=== PATIENT | male | born 1955 | race Caucasian/White ===

== ENCOUNTER 2021-08-09 10:26 | Emergency (ER) | payer MEDICARE, OTHER ==
[2021-08-09] MEDS ORDERED: ACETAMINOPHEN 500 MG TAB ONE (11:32)
--- NOTE | 2021-08-09 11:43 | RAD REPORT ---
EXAM DESCRIPTION: CT - Head Brain Wo Cont - 08/09/2021 11:25 am CLINICAL HISTORY: HEADACHE COMPARISON: No comparisons TECHNIQUE: All CT scans are performed using dose optimization technique as appropriate and may inclu de automated exposure control or mA/KV adjustment according to patient size. FINDINGS: Asymmetric white matter disease in the left cerebral hemisphere. Left subinsular hypoatten uation with surrounding hypoattenuation. This may represent petechial hemorrhage from a prior infarct . No definite acute intracranial hemorrhage. No mass effect or midline shift. Ex vacuo dilatation lef t lateral ventricle. The paranasal sinuses and mastoids are clear. The calvarium is intact. IMPRESSION: Left subinsular hypoattenuation most likely representing a chronic infarct with adjacent petechial hemorrhage. No priors are available for comparison. Consider further evaluation with MRI w ith and without contrast to better evaluate.
[2021-08-09] MEDS ORDERED: LORazepam 2 MG/ML VIAL ONE (12:08)
[2021-08-09 12:10] LABS: Absolute Lymphocytes (CBC) 1.6 K/uL (0.7-4.9); Hematocrit 41.1 % (39.6-49.0); Lymphocytes % 25.6 % (15.3-44.8); MPV 7.9 fL (7.6-11.3); RBC Red Blood Cell Count 4.38 M/uL (4.33-5.43)
[2021-08-09 12:13] LABS: Protime INR 1.14
[2021-08-09 12:24] LABS: Potassium 3.9 mmol/L (3.5-5.1)
[2021-08-09 12:33] LABS: SARS-COV-2 RT PCR NEGATIVE (NEGATIVE)
--- NOTE | 2021-08-09 13:04 | RAD REPORT ---
EXAM DESCRIPTION: MRI - Brain W/Wo Cont - 08/09/2021 12:48 pm CLINICAL HISTORY: Headache COMPARISON: head CT head CT August 09, 2021 TECHNIQUE: Axial, sagittal, and coronal magnetic images of the brain were obtained. 20 cc MultiHance administered intravenously FINDINGS: Mild to moderate signal within periventricular, deep and subcortical white matter probably ischemic changes secondary to small vessel disease 4 centimeter area of abnormal signal left subinsular region with low signal periphery. Atrophied left cerebral peduncle of the forrest with small area of increased signal probably old small i nfarct. The ventricles are normal in caliber. Diffusion-weighted/ ADC mapping sequences do not demonstrate evidence of an acute infarction. No abnormal enhancement within the brain is seen. An extra-axial fluid collection is not noted. Small amount signal left mastoid IMPRESSION: A 4 centimeter area of abnormal signal left subinsular region with low signal periphery. This is compatible with an old infarction with the low signal representing hemosiderin indicating a small old bleed in the periphery. In addition T1 weighted sequences demonstrate minimal increased si gnal in the periphery probably indicating small acute/subacute petechial bleed
--- NOTE | 2021-08-09 13:35 | ER ---
Nurse's Notes [facility] Name: George Molina Age: 66 yrs Sex: Male : 1955 Arrival Date: 08/09/2021 Time: 10:27 Bed 8 Private MD: Joe Sierra E Diagnosis: Other nontraumatic intracerebral hemorrhage Presentation: 08/09 10:39 Chief complaint: Pt having kerr with fls x 3 days. family worried about KERR due to hx of [facility] head bleed x 2 mo ago. Coronavirus screen: Vaccine status: Patient reports receiving the 2nd dose of the covid vaccine. Client denies travel out of the [place] in the last 14 days. Ebola Screen: Patient denies exposure to infectious person. Patient denies travel to an Ebola-affected area in the 21 days before illness onset. Initial Sepsis Screen: Does the patient meet any 2 criteria? No. Patient's initial sepsis screen is negative. Does the patient have a suspected source of infection? No. Patient's initial sepsis screen is negative. Risk Assessment: Do you want to hurt yourself or someone else? Patient reports no desire to harm self or others. Onset of symptoms was August 06, 2021. 10:39 Method Of Arrival: Wheelchair [facility] 10:39 Acuity: FRANCY 3 [facility] Triage Assessment: 10:42 Headache History: The patient has had previous headaches and this one is similar to [facility] previous episodes. General: Appears in no apparent distress. Behavior is calm, cooperative. Pain: Complains of pain in forehead Pain currently is 6 out of 10 on a pain scale. Quality of pain is described as throbbing, Pain began 2-3 days ago. Also complains of no other associated symptoms. Neuro: No deficits noted. Historical: - Allergies: 10:41 Ibuprofen; [facility] - PMHx: 10:41 Cerebrovascular accident; Hypertensive disorder; [facility] - Immunization history:: Client reports receiving the 2nd dose of the Covid vaccine, Client reports having NOT received the Covid vaccine. - Social history:: Smoking status: Patient/guardian denies using. Screenin:45 Abuse screen: Denies threats or abuse. Denies injuries from another. Nutritional bp screening: No deficits noted. Tuberculosis screening: No symptoms or risk factors identified. Fall Risk None identified. Assessment: 10:45 General: SEE TRIAGE NOTE. bp 11:38 Reassessment: PT RETURNED FROM CT. bp 13:03 Reassessment: No changes from previously documented assessment. Patient and/or family bp updated on plan of care and expected duration. Pain level reassessed. PT RETURNED FROM MRI. 14:15 Reassessment: REPORT TO VINI WALTON AT [facility]. TRANSPORT PENDING. bp 15:48 Reassessment: PT SKYLAR WITH EMS. bp Vital Signs: 10:39 BP 109 / 79; Pulse 83; Resp 18; Temp 97.8; Pulse Ox 99% ; Weight 80.74 kg; Height 5 ft. jh6 9 in. (175.26 cm); Pain 6/10; 11:37 BP 129 / 82; Pulse 72; Resp 18; Pulse Ox 99% ; bp 13:03 BP 128 / 87; Pulse 69; Resp 16; Pulse Ox 99% ; bp 14:15 BP 128 / 92; Pulse 62; Resp 15; Pulse Ox 100% ; bp 15:30 BP 141 / 87; Pulse 127; Resp 16; Pulse Ox 100% ; bp 10:39 Body Mass Index 26.29 (80.74 kg, 175.26 cm) [facility] ED Course: 10:27 Patient arrived in ED. am2 10:28 Joe Sierra MD is Private Physician. am2 10:41 Triage completed. jh6 10:43 Arm band placed on left wrist. jh6 10:44 Lorne Sheikh, ISABELLE is Primary Nurse. bp 10:45 Patient has correct armband on for positive identification. Bed in low position. Call bp light in reach. Side rails up X2. Adult w/ patient. 10:48 Sarthak Gibbs PA is PHCP. cp 10:48 Sarthak Stevens MD is Attending Physician. cp 11:24 CT Head Brain wo Cont In Process Unspecified. EDMS 11:39 Strep Sent. bp 11:39 COVID-19/FLU A+B (Document "Date of Onset" if Symptomatic) Sent. bp 12:00 Inserted saline lock: 22 gauge in left forearm, using aseptic technique. Blood bp collected. 12:48 MRI - Brain W/Wo Cont In Process Unspecified. EDMS 13:08 EKG done, by ED staff, reviewed by Sarthak LINDO. mb7 13:41 initiated transfer to [facility]. bd 14:16 No provider procedures requiring assistance completed. Patient transferred, IV remains bp in place. 14:59 pt accepted in transfer to [facility] by Dr Rollins, admin approval given by Aisha Benítez. Administered Medications: 11:24 Drug: Tylenol 1000 mg Route: PO; bp 12:12 Follow up: Response: No adverse reaction bp 12:00 Drug: Ativan (LORazepam) 0.5 mg Route: IVP; Site: right forearm; bp 14:16 Follow up: Response: Anxiety decreased bp 14:45 Drug: Zofran (Ondansetron) 4 mg Route: IVP; Site: left forearm; bp 15:12 Follow up: Response: No adverse reaction bp 14:45 Drug: Pepcid (famotidine) 20 mg Route: IVP; Site: left forearm; bp 15:12 Follow up: Response: No adverse reaction bp Outcome: 13:35 ER care complete, transfer ordered by . cp 15:50 Transferred by ground EMS to [facility], Transfer form completed. bp 15:50 Condition: stable 15:50 Instructed on the need for transfer. 15:51 Patient left the ED. bp Signatures: Dispatcher [employer] EDMS Gaby Hartman Corey, PA PA cp Moreno, Amanda am2 Lorne Sheikh, RN RN Naya Beard RN RN jh6 Ely Baker mb7
--- NOTE | 2021-08-09 13:35 | EDPHYS ---
Physician Documentation [facility] Name: George Molina Age: 66 yrs Sex: Male : 1955 Arrival Date: 08/09/2021 Time: 10:27 Bed 8 Private MD: Joe Sierra E ED Physician Sarthak Stevens HPI: 08/09 11:00 This 66 yrs old Male presents to ER via Wheelchair with complaints of Runny Nose, cp Headache, Blood Pressure Problem. 11:00 The patient complains of pain to the top of head and forehead. The patient describes cp the headache as aching. 11:00 Onset: The symptoms/episode began/occurred this morning. Severity of symptoms: in the cp emergency department the pain is unchanged, despite home interventions. Historical: - Allergies: 10:41 Ibuprofen; jh6 - PMHx: 10:41 Cerebrovascular accident; Hypertensive disorder; jh6 - Immunization history:: Client reports receiving the 2nd dose of the Covid vaccine, Client reports having NOT received the Covid vaccine. - Social history:: Smoking status: Patient/guardian denies using. ROS: 11:05 Constitutional: Negative for body aches, chills, fever, poor PO intake. cp 11:05 Eyes: Negative for injury, pain, redness, and discharge. cp 11:05 ENT: Positive for rhinorrhea, sore throat, Negative for drainage from ear(s), ear pain, difficulty swallowing, difficulty handling secretions. 11:05 Cardiovascular: Negative for chest pain, edema, palpitations. 11:05 Respiratory: Positive for cough, Negative for shortness of breath, wheezing. 11:05 Abdomen/GI: Negative for abdominal pain, nausea, vomiting, and diarrhea. 11:05 Neuro: Positive for headache, Negative for altered mental status, dizziness, syncope, weakness. Exam: 11:03 ECG was reviewed by the Attending Physician. cp 11:10 Constitutional: The patient appears in no acute distress, alert, awake, cp non-diaphoretic, non-toxic, well developed, well nourished. 11:10 Head/Face: Normocephalic, atraumatic. cp 11:10 Eyes: Periorbital structures: appear normal, Pupils: equal, round, and reactive to light and accomodation, Extraocular movements: intact throughout, Conjunctiva: normal, no exudate, no injection, Sclera: no appreciated abnormality, Lids and lashes: appear normal, bilaterally. 11:10 ENT: External ear(s): are unremarkable, Nose: is normal, Mouth: Lips: moist, Oral mucosa: moist, Posterior pharynx: Airway: no evidence of obstruction, patent. 11:10 Neck: ROM/movement: is normal, is supple, without pain, no range of motions limitations. 11:10 Chest/axilla: Inspection: normal, Palpation: is normal, no crepitus, no tenderness. 11:10 Cardiovascular: Rate: normal, Rhythm: regular. 11:10 Respiratory: the patient does not display signs of respiratory distress, Respirations: normal, no use of accessory muscles, no retractions, labored breathing, is not present, intercostal retractions, are absent, Breath sounds: are clear throughout, no decreased breath sounds, no stridor, no wheezing. 11:10 Abdomen/GI: Inspection: abdomen appears normal, Bowel sounds: active, all quadrants, Palpation: abdomen is soft and non-tender, in all quadrants. 11:10 Back: pain, is absent, ROM is normal. 11:10 Neuro: Orientation: no acute changes, per family, Mentation: no acute changes, per family, Motor: no acute changes, right arm partially contracted from previous stroke, Sensation: no acute changes. Vital Signs: 10:39 BP 109 / 79; Pulse 83; Resp 18; Temp 97.8; Pulse Ox 99% ; Weight 80.74 kg; Height 5 ft. jh6 9 in. (175.26 cm); Pain 6/10; 11:37 BP 129 / 82; Pulse 72; Resp 18; Pulse Ox 99% ; bp 13:03 BP 128 / 87; Pulse 69; Resp 16; Pulse Ox 99% ; bp 14:15 BP 128 / 92; Pulse 62; Resp 15; Pulse Ox 100% ; bp 15:30 BP 141 / 87; Pulse 127; Resp 16; Pulse Ox 100% ; bp 10:39 Body Mass Index 26.29 (80.74 kg, 175.26 cm) jh6 MDM: 10:48 Patient medically screened. cp 08/09 11:04 Order name: COVID-19/FLU A+B (Document "Date of Onset" if Symptomatic) cp 08/09 11:04 Order name: Strep cp 08/09 11:04 Order name: COVID-19/FLU A+B; Complete Time: 13:05 EDTX 08/09 11:04 Order name: Group A Streptococcus Rapid Sc; Complete Time: 13:05 EDTX 08/09 11:48 Order name: Basic Metabolic Panel; Complete Time: 13:05 08/09 13:05 Interpretation: Normal except: CRE 1.69; GFR 41. 08/09 11:48 Order name: CBC with Diff; Complete Time: 13:05 08/09 13:06 Interpretation: Normal except: MCV 93.7; PLT 146; EOSINOPHIL % 4.5. 08/09 11:04 Order name: CT Head Brain wo Cont; Complete Time: 11:44 08/09 11:46 Order name: MRI - Brain W/Wo Cont; Complete Time: 13:05 08/09 11:48 Order name: PT-INR; Complete Time: 13:05 08/09 12:20 Order name: Throat Culture EDTX 08/09 12:35 Order name: CREATININE WHOLE BLOOD; Complete Time: 13:05 EDTX 08/09 11:48 Order name: EKG; Complete Time: 11:49 08/09 11:48 Order name: Cardiac monitoring; Complete Time: 12:11 08/09 11:48 Order name: EKG - Nurse/Tech; Complete Time: 13:03 08/09 11:48 Order name: IV Saline Lock; Complete Time: 12:12 08/09 11:48 Order name: Labs collected and sent; Complete Time: 12:12 08/09 11:48 Order name: O2 Per Protocol; Complete Time: 12:12 08/09 11:48 Order name: O2 Sat Monitoring; Complete Time: 12:12 EC:03 Rate is 73 beats/min. Rhythm is regular. NH interval is normal at 200 msec. QRS cp interval is prolonged at 102 msec. QT interval is normal. T waves are Inverted in leads III, aVR. Interpreted by me. Reviewed by me. Administered Medications: 11:24 Drug: Tylenol 1000 mg Route: PO; bp 12:12 Follow up: Response: No adverse reaction bp 12:00 Drug: Ativan (LORazepam) 0.5 mg Route: IVP; Site: right forearm; bp 14:16 Follow up: Response: Anxiety decreased bp 14:45 Drug: Zofran (Ondansetron) 4 mg Route: IVP; Site: left forearm; bp 15:12 Follow up: Response: No adverse reaction bp 14:45 Drug: Pepcid (famotidine) 20 mg Route: IVP; Site: left forearm; bp 15:12 Follow up: Response: No adverse reaction bp Disposition Summary: 08/09/21 13:35 Transfer Ordered Transfer Location: [facility] Reason: Higher level of care cp Condition: Stable cp Problem: new cp Symptoms: have improved cp Accepting Physician: DR Rollins(08/09/21 15:51) bp Diagnosis - Other nontraumatic intracerebral hemorrhage cp Forms: - Medication Reconciliation Form cp - SBAR form cp Addendum: 08/12/2021 09:19 Co-signature as Attending Physician, Sarthak Stevens MD I agree with the assessment and c schulz plan of care. Signatures: Dispatcher [employer] EDSarthak Cano MD MD cha Page, Corey, PA PA cp Lorne Sheikh, RN RN bp Naya Ferrara RN RN jh6 Corrections: (The following items were deleted from the chart) 08/09 13:54 13:35 Doctor cp cp 15:51 13:54 DR Rollins cp bp
[2021-08-09] MEDS ORDERED: ONDANSETRON 4 MG/2 ML VIAL ONE (14:46)
[2021-08-09] MEDS ORDERED: FAMOTIDINE 20 MG/2 ML VIAL IV ONE (14:47)
[2021-08-09 15:56] VITALS: TEMP 97.8
[2021-08-09 16:00] VITALS: O2SAT 100
[2021-08-09 16:01] VITALS: BP 141/87
--- NOTE | 2021-08-10 09:13 | EKG ---
Test Date: 2021-08-09 Test Time: 10:55:22 [employer] Worker: BENJAMIN MEASUREMENT RESULTS: Intervals: Rate: 73 VT: 200 QRSD: 102 QT: 394 QTc: 434 [place]: P: 34 VT: 200 QRS: 15 T: 20 INTERPRETIVE STATEMENTS: Normal sinus rhythm Normal ECG Compared to ECG 02/02/2016 14:05:58 No significant changes Electronically Signed On 08-10-21 09:09:25 [employer] by Kentrell Luna
== END 2021-08-09 15:51 | disposition short-term general hospital (02) ==
LOC: ER 10:26
DX: I61.8 Other nontraumatic intracerebral hemorrhage (principal); I10 Essential (primary) hypertension; Z86.73 Personal history of transient ischemic attack (TIA), and cerebral infarction without residual deficits; Z88.6 Allergy status to analgesic agent; Z20.822 Contact with and (suspected) exposure to COVID-19
CPT/HCPCS: 93005; 87070; 85025; 80048; 36415; 85610; 82565; 87081; 0240U; 70450; 70553; 99285; A9577; J2405

== ENCOUNTER 2021-12-22 15:12 | Observation (INO) | payer MEDICARE ==
--- NOTE | 2021-12-22 16:26 | RAD REPORT ---
EXAM DESCRIPTION: RAD - Chest Single View - 12/22/2021 4:04 pm CLINICAL HISTORY: CHEST PAIN COMPARISON: None TECHNIQUE: AP portable chest image was obtained 12/22/2021 4:04 pm . FINDINGS: Lungs are clear. Heart and vasculature are normal. No measurable pleural effusion and no p neumothorax. No acute bony abnormality seen. No acute aortic findings suspected. IMPRESSION: No acute cardiopulmonary process.
[2021-12-22 16:30] LABS: Absolute Lymphocytes (CBC) 0.9 K/uL (0.7-4.9); Hematocrit 44.2 % (39.6-49.0); Lymphocytes % 28.1 % (15.3-44.8); MCV 92.9 fL (80-100); RBC Red Blood Cell Count 4.75 M/uL (4.33-5.43)
[2021-12-22 16:55] LABS: Albumin 4.2 g/dL (3.4-5.0); Bilirubin Direct 0.2 mg/dL (0-0.2); Bilirubin Total 0.8 mg/dL (0.2-1.0); Protein, Total 8.3 g/dL (6.4-8.2)
[2021-12-22] MEDS ORDERED: ASPIRIN EC 81 MG TAB PO ONE (16:55)
[2021-12-22] MEDS ORDERED: CEFTRIAXONE 1000 MG/VIAL ONE (16:56)
[2021-12-22] MEDS ORDERED: AZITHROMYCIN 500 MG INJ IVPB ONE (16:56)
[2021-12-22 16:57] LABS: Magnesium 2.1 mg/dL (1.8-2.4); Potassium 4.6 mmol/L (3.5-5.1)
[2021-12-22] MEDS ORDERED: NA CHLORIDE 0.9% 250 ML ONE (16:57)
[2021-12-22] MEDS ORDERED: NA CHLORIDE 0.9% 1,000 ML ONE (16:57)
[2021-12-22 18:04] LABS: Protime INR 1.1
[2021-12-22] MEDS ORDERED: METOPROLOL TAR 50 MG TAB ONE (18:38)
--- NOTE | 2021-12-22 18:52 | ER ---
Nurse's Notes [facility] Name: George Molina Age: 66 yrs Sex: Male : 1955 Arrival Date: 12/22/2021 Time: 15:17 Bed 3 Private MD: Joe Sierra E Diagnosis: Chest pain, unspecified;Chest pain on breathing;Fever, unspecified;Coronavirus infection, unspecified;SARS-associated coronavirus as the cause of diseases classified elsewhere;Unspecified kidney failure-ACUTE ON CHRONIC Presentation: 12/22 16:01 Chief complaint: Patient states: fever, chest pain, ear pain since last night. iw Coronavirus screen: Client presents with at least one sign or symptom that may indicate coronavirus-19. Ebola Screen: Patient negative for fever greater than or equal to 101.5 degrees Fahrenheit, and additional compatible Ebola Virus Disease symptoms Patient denies exposure to infectious person. Patient denies travel to an Ebola-affected area in the 21 days before illness onset. No symptoms or risks identified at this time. Initial Sepsis Screen: Does the patient meet any 2 criteria? No. Patient's initial sepsis screen is negative. Does the patient have a suspected source of infection? No. Patient's initial sepsis screen is negative. Risk Assessment: Do you want to hurt yourself or someone else? Patient reports no desire to harm self or others. Onset of symptoms was December 21, 2021. 16:01 Method Of Arrival: Wheelchair iw 16:01 Acuity: FRANCY 3 iw Historical: - Allergies: 16:02 Ibuprofen; iw - Home Meds: 18:39 hydralazine 25 mg Oral tab 1 tab 4 times per day [Active]; labetalol 200 mg Oral tab 1 ha1 tab 4 [Active]; atorvastatin 20 mg oral tab 1 tab once daily [Active]; - PMHx: 16:02 Cerebrovascular accident; Hypertensive disorder; iw - Immunization history:: Adult Immunizations up to date, Client reports receiving the 2nd dose of the Covid vaccine. - Social history:: Smoking status: Patient denies any tobacco usage or history of. Patient/guardian denies using alcohol. - Family history:: not pertinent. Screenin:27 Abuse screen: Denies threats or abuse. Denies injuries from another. Nutritional ld1 screening: No deficits noted. Tuberculosis screening: No symptoms or risk factors identified. Fall Risk None identified. Assessment: 16:26 General: Appears in no apparent distress. comfortable, Behavior is calm, cooperative, ld1 appropriate for age. Pain: Complains of pain in chest Pain does not radiate. Pain currently is 0 out of 10 on a pain scale. at worst was 8 out of 10 on a pain scale. Quality of pain is described as pressure, throbbing, Pain began 2-3 days ago. Neuro: Level of Consciousness is awake, alert, obeys commands, Oriented to person, place, time, situation. Cardiovascular: Capillary refill < 3 seconds Patient's skin is warm and dry. Rhythm is sinus rhythm. Respiratory: Airway is patent Respiratory effort is even, unlabored. GI: Abdomen is round non-distended. : No signs and/or symptoms were reported regarding the genitourinary system. EENT: No signs and/or symptoms were reported regarding the EENT system. Derm: No signs and/or symptoms reported regarding the dermatologic system. Musculoskeletal: No signs and/or symptoms reported regarding the musculoskeletal system. Vital Signs: 16:26 BP 150 / 77; Pulse 86; Resp 18; Pulse Ox 100% on R/A; ld1 16:40 BP 154 / 85; Pulse 80; Resp 18; Pulse Ox 100% on R/A; ld1 18:10 BP 151 / 76; Pulse 88; Resp 18; Pulse Ox 99% on R/A; ld1 18:30 BP 136 / 89; Pulse 95; Resp 19; Pulse Ox 98% on R/A; ha1 18:49 Weight 70.31 kg; ld1 ED Course: 15:17 Patient arrived in ED. am2 15:17 Joe Sierra MD is Private Physician. am2 15:29 Sarthak Stevens MD is Attending Physician. jm 16:02 Triage completed. iw 16:06 XRAY Chest (1 view) In Process Unspecified. EDMS 16:09 Beverly Gonzales, ISABELLE is Primary Nurse. ld1 16:26 Lactate Sent. ld1 16:27 No provider procedures requiring assistance completed. Inserted saline lock: 20 gauge ld1 in left antecubital area, using aseptic technique. Blood collected. Patient maintains SpO2 saturation greater than 95% on room air. 16:27 Patient has correct armband on for positive identification. Placed in gown. Bed in low ld1 position. Call light in reach. Side rails up X2. jig bore operator on. Pulse ox on. NIBP on. Door closed. Noise minimized. Warm blanket given. 17:07 Flu Sent. ld1 17:07 SARS-COV-2 RT PCR (Document "Date of Onset" if Symptomatic) Sent. ld1 17:27 Inserted saline lock: 20 gauge in left forearm, using aseptic technique. Blood jd3 collected. 18:00 Second set of blood cultures drawn by ky. ha1 18:10 Urine Culture Sent. ld1 18:25 SARS-COV-2 RT PCR (Document "Date of Onset" if Symptomatic) Sent. oj 18:50 Prosper Linares is Hospitalizing Provider. jm Administered Medications: 17:54 Drug: Rocephin (cefTRIAXone) 1 grams Route: IV; Rate: per protocol; Site: left ld1 antecubital; 17:54 Drug: Aspirin Chewable Tablet 162 mg Route: PO; ld1 18:24 Follow up: Response: No adverse reaction ha1 18:09 Drug: Zithromax (azithromycin) 500 mg Route: IVPB; Infused Over: 1 hrs; Site: left ld1 antecubital; 18:09 Drug: NS 0.9% 1000 ml Route: IV; Rate: 1 bolus; Site: left antecubital; ld1 18:35 Drug: Lopressor (metoprolol TARTRATE) 50 mg Route: PO; ha1 19:09 Drug: Lovenox (enoxaparin) 1 mg/kg Route: Sub-Q; Site: abdomen; ld1 19:09 Drug: Pepcid (famotidine) 40 mg Route: PO; ld1 Medication: 16:27 VIS not applicable for this client. ld1 Outcome: 18:51 Decision to Hospitalize by Provider. jm 21:41 Patient left the ED. as6 Signatures: Dispatcher [employer] EDMS Sarthak Stevens MD MD cha Williams, Irene, RN Ekaterina Pitts Jonathon, RN RN jd3 Beverly Gonzales RN RN ld1 Kaiden Guerrero RN RN as6 Roxana Roberson RN RN ha1 Jackie Sheldon tato
--- NOTE | 2021-12-22 18:52 | EDPHYS ---
Physician Documentation [facility] [place] Name: George Molina Age: 66 yrs Sex: Male : 1955 Arrival Date: 12/22/2021 Time: 15:17 Bed 3 Private MD: Joe Sierra E ED Physician Sarthak Stevens HPI: 12/22 18:37 This 66 yrs old Male presents to ER via Wheelchair with complaints of Chest jm Pain. 18:37 The patient or guardian reports chest pain that is located primarily in the substernal jm area. Onset: 1 day(s) ago. The pain radiates to the left arm, Associated signs and symptoms: Pertinent positives: cough, lightheadedness, shortness of breath. The chest pain is described as a pressure. Duration: The patient or guardian reports multiple episodes, with no pattern. Modifying factors: The symptoms are alleviated by nothing. the symptoms are aggravated by nothing. Severity of pain: At its worst the pain was mild in the emergency department the pain is unchanged. The patient has experienced similar episodes in the past, several times. Historical: - Allergies: 16:02 Ibuprofen; iw - Home Meds: 18:39 hydralazine 25 mg Oral tab 1 tab 4 times per day [Active]; labetalol 200 mg Oral tab 1 ha1 tab 4 [Active]; atorvastatin 20 mg oral tab 1 tab once daily [Active]; - PMHx: 16:02 Cerebrovascular accident; Hypertensive disorder; iw - Immunization history:: Adult Immunizations up to date, Client reports receiving the 2nd dose of the Covid vaccine. - Social history:: Smoking status: Patient denies any tobacco usage or history of. Patient/guardian denies using alcohol. - Family history:: not pertinent. ROS: 18:37 Constitutional: Negative for fever, chills, and weight loss, Eyes: Negative for injury, jm pain, redness, and discharge, ENT: Negative for injury, pain, and discharge, Neck: Negative for injury, pain, and swelling, Abdomen/GI: Negative for abdominal pain, nausea, vomiting, diarrhea, and constipation, Back: Negative for injury and pain, : Negative for injury, bleeding, discharge, and swelling, MS/Extremity: Negative for injury and deformity, Skin: Negative for injury, rash, and discoloration, Neuro: Negative for headache, weakness, numbness, tingling, and seizure, Psych: Negative for depression, anxiety, suicide ideation, homicidal ideation, and hallucinations, Allergy/Immunology: Negative for hives, rash, and allergies, Endocrine: Negative for neck swelling, polydipsia, polyuria, polyphagia, and marked weight changes, Hematologic/Lymphatic: Negative for swollen nodes, abnormal bleeding, and unusual bruising. 18:37 Cardiovascular: Positive for chest pain, of the chest. 18:37 Respiratory: Positive for cough, with no reported sputum. Exam: 18:37 Constitutional: This is a well developed, well nourished patient who is awake, alert, jm and in no acute distress. Head/Face: Normocephalic, atraumatic. Eyes: Pupils equal round and reactive to light, extra-ocular motions intact. Lids and lashes normal. Conjunctiva and sclera are non-icteric and not injected. Cornea within normal limits. Periorbital areas with no swelling, redness, or edema. ENT: Nares patent. No nasal discharge, no septal abnormalities noted. Tympanic membranes are normal and external auditory canals are clear. Oropharynx with no redness, swelling, or masses, exudates, or evidence of obstruction, uvula midline. Mucous membranes moist. Neck: Trachea midline, no thyromegaly or masses palpated, and no cervical lymphadenopathy. Supple, full range of motion without nuchal rigidity, or vertebral point tenderness. No Meningismus. Chest/axilla: Normal chest wall appearance and motion. Nontender with no deformity. No lesions are appreciated. Cardiovascular: Regular rate and rhythm with a normal S1 and S2. No gallops, murmurs, or rubs. Normal PMI, no JVD. No pulse deficits. Respiratory: Lungs have equal breath sounds bilaterally, clear to auscultation and percussion. No rales, rhonchi or wheezes noted. No increased work of breathing, no retractions or nasal flaring. Abdomen/GI: Soft, non-tender, with normal bowel sounds. No distension or tympany. No guarding or rebound. No evidence of tenderness throughout. Back: No spinal tenderness. No costovertebral tenderness. Full range of motion. Skin: Warm, dry with normal turgor. Normal color with no rashes, no lesions, and no evidence of cellulitis. MS/ Extremity: Pulses equal, no cyanosis. Neurovascular intact. Full, normal range of motion. Neuro: Awake and alert, GCS 15, oriented to person, place, time, and situation. Cranial nerves II-XII grossly intact. Motor strength 5/5 in all extremities. Sensory grossly intact. Cerebellar exam normal. Normal gait. Psych: Awake, alert, with orientation to person, place and time. Behavior, mood, and affect are within normal limits. 18:37 ECG was reviewed by the Attending Physician. 18:37 Musculoskeletal/extremity: ROM: no acute changes, intact in all extremities, Circulation is intact in all extremities. Sensation intact. Compartment Syndrome exam of affected extremity: is normal. DVT Exam: No signs of deep vein thrombosis. no pain, no swelling, no tenderness, negative Homans' sign noted on exam, no appreciated bluish discoloration, no erythema, no increased warmth. Vital Signs: 16:26 BP 150 / 77; Pulse 86; Resp 18; Pulse Ox 100% on R/A; ld1 16:40 BP 154 / 85; Pulse 80; Resp 18; Pulse Ox 100% on R/A; ld1 18:10 BP 151 / 76; Pulse 88; Resp 18; Pulse Ox 99% on R/A; ld1 18:30 BP 136 / 89; Pulse 95; Resp 19; Pulse Ox 98% on R/A; ha1 18:49 Weight 70.31 kg; ld1 MDM: 15:29 Patient medically screened. jm 18:40 Differential diagnosis: abnormal EKG, acute myocardial infarction, acute pericarditis, jm congestive heart failure gastroesophageal reflux disease (GERD), hiatal hernia, pancreatitis, pericarditis, pleurisy, pneumonia, pulmonary embolus, stable angina, thoracic aortic disection, unstable angina. HEART Score: History: Slightly Suspicious (0), ECG: Normal (0), Age: > 45 and < 65 years (1), Risk Factors: > or = 3 Risk factors for atherosclerotic disease (2), [Hypercholesterolemia] [Hypertension] [+ Family HX] Troponin: < or = 1 x Normal Limit (0). The patient was given aspirin in the Emergency Department. The patient's deep vein thrombosis risk score was calculated as follows: Total Score: 0. This patient was found to be at low risk for a deep vein thrombosis by using the Well's assessment criteria. The patient's pulmonary embolism risk score was calculated as follows: Total Score: 0-2 points. This patient was found to be at low risk for a pulmonary embolism by using the Well's assessment criteria. RAIMUNDO Risk Score: 1 - Three or more CAD risk factors, 1- Known CAD, 1 - ASA use in past 7 days, TOTAL SCORE = 3. Data reviewed: vital signs, nurses notes, lab test result(s), EKG, radiologic studies, plain films. Data interpreted: playground monitor: rate is 95 beats/min, rhythm is regular, Pulse oximetry: on room air is 98 %. Test interpretation: by ED physician or midlevel provider: ECG, plain radiologic studies. Counseling: I had a detailed discussion with the patient and/or guardian regarding: the historical points, exam findings, and any diagnostic results supporting the discharge/admit diagnosis, lab results, radiology results, the need for further work-up and treatment in the hospital. 12/22 15:46 Order name: Basic Metabolic Panel; Complete Time: 17:43 [facility] 12/22 15:46 Order name: CBC with Diff; Complete Time: 16:49 [facility] 12/22 15:46 Order name: LFT's; Complete Time: 17:43 12/22 15:46 Order name: Magnesium; Complete Time: 17:43 12/22 15:46 Order name: NT PRO-BNP; Complete Time: 17:43 jm 12/22 15:46 Order name: PT-INR; Complete Time: 18:24 12/22 15:46 Order name: Troponin HS; Complete Time: 17:43 12/22 15:46 Order name: XRAY Chest (1 view); Complete Time: 16:49 12/22 15:46 Order name: Blood Culture Adult (2) 12/22 15:46 Order name: Lactate; Complete Time: 16:49 [facility] 12/22 15:46 Order name: Urine Culture 12/22 15:46 Order name: SARS-COV-2 RT PCR (Document "Date of Onset" if Symptomatic); Complete Time: jm 19:01 12/22 15:46 Order name: Flu; Complete Time: 19:01 12/22 15:46 Order name: EKG; Complete Time: 15:47 12/22 15:46 Order name: Cardiac monitoring; Complete Time: 16:26 [facility] 12/22 15:46 Order name: EKG - Nurse/Tech; Complete Time: 16:26 [facility] 12/22 15:46 Order name: IV Saline Lock; Complete Time: 16: [facility] 12/22 15:46 Order name: Labs collected and sent; Complete Time: 19:05 [facility] 12/22 15:46 Order name: O2 Per Protocol; Complete Time: 16: [facility] 12/22 15:46 Order name: O2 Sat Monitoring; Complete Time: 16: [facility] 12/22 15:46 Order name: Urine Dipstick-Ancillary (obtain specimen); Complete Time: 18:10 [facility] EC:37 Rate is 82 beats/min. Rhythm is regular. QRS [place] is Normal. [place] interval is normal. QRS jm interval is normal. QT interval is normal. No Q waves. T waves are Normal. No ST changes noted. Clinical impression: NSR w/ Non-specific ST/T Changes and No evidence of ischemia. Interpreted by me. Reviewed by me. Administered Medications: 17:54 Drug: Rocephin (cefTRIAXone) 1 grams Route: IV; Rate: per protocol; Site: left ld1 antecubital; 17:54 Drug: Aspirin Chewable Tablet 162 mg Route: PO; ld1 18:24 Follow up: Response: No adverse reaction ha1 18:09 Drug: Zithromax (azithromycin) 500 mg Route: IVPB; Infused Over: 1 hrs; Site: left ld1 antecubital; 18:09 Drug: NS 0.9% 1000 ml Route: IV; Rate: 1 bolus; Site: left antecubital; ld1 18:35 Drug: Lopressor (metoprolol TARTRATE) 50 mg Route: PO; ha1 19:09 Drug: Lovenox (enoxaparin) 1 mg/kg Route: Sub-Q; Site: abdomen; ld1 19:09 Drug: Pepcid (famotidine) 40 mg Route: PO; ld1 Disposition Summary: 12/22/21 18:51 Hospitalization Ordered Hospitalization Status: Observation jm Provider: Prosper Linares cha Location: Telemetry/MedSurg (observation) jm Condition: Fair jm Problem: new jm Symptoms: have improved jm Bed/Room Type: Standard [facility] Room Assignment: 222(12/22/21 20:48) eb1 Diagnosis - Chest pain, unspecified jm - Chest pain on breathing mj - Fever, unspecified jm - Coronavirus infection, unspecified jm - SARS-associated coronavirus as the cause of diseases classified elsewhere jm - Unspecified kidney failure - ACUTE ON CHRONIC jm Forms: - Medication Reconciliation Form jm - SBAR form jm Signatures: Dispatcher [employer] EDMS Sarthak Stevens MD MD cha Williams, Irene RN Val Coelho RN RN eb1 Beverly Gonzales RN RN ld1 Roxana Roberson RN RN ha1 Corrections: (The following items were deleted from the chart) 19:05 18:45 Misc. Order ordered. [facility] 19:40 18:53 Chest For PE Angio+CT.RAD.BRZ ordered. [facility] EDMS 20:48 18:51 jm eb1
[2021-12-22] MEDS ORDERED: FAMOTIDINE 20 MG TAB ONE (19:13)
[2021-12-22] MEDS ORDERED: ENOXAPARIN 80 MG/0.8 ML SQ ONE (19:13)
--- NOTE | 2021-12-22 20:49 | P.HP ---
Certification for Inpatient Patient admitted to: Observation With expected LOS: <2 Midnights Patient will require the following post-hospital care: None Practitioner: I am a practitioner with admitting privileges, knowledge of patient current condition, hospital course, and medical plan of care. Services: Services provided to patient in accordance with Admission requirements found in Title 42 Section 412.3 of the Code of Federal Regulations Patient History Date of Service: 12/22/21 Reason for admission: Chest Pain, COVID+ History of Present Illness: Patient is a 66-year-old male with hypertension and history of CVA with left sided deficits who presented to the ED with complaints of fever, chest pain, and cough x 24 hours. He reports the chest pain is midsternal, feels like a stabbing pain, but does not radiate anywhere. Son reports he has been unsteady on his feet. Work-up in ED significant for creatinine 1.85, troponin WNL, EKG without ST changes, COVID-positive, chest x-ray negative. He was given Rocephin, azithromycin, 162 mg aspirin, 1 L fluid, Lopressor, Pepcid, and therapeutic Lovenox in the ED. Upon my assessment, patient reports his chest pain has subsided. He did not know he was COVID-positive. He has been vaccinatedx2. Patient denies any cardiac history or previous cardiac work-up. ED provider wishes admit patient for observation. Allergies No Known Allergies Allergy (Verified 04/19/16 09:57) Home medications list reviewed: Yes Home Medications: Finasteride [Proscar] 5 mg PO DAILY 04/13/16 Hydralazine [Apresoline] 25 mg PO QID 04/13/16 Labetalol HCl [Trandate] 200 mg PO TID 04/13/16 Tamsulosin [Flomax] 0.4 mg PO BID 04/13/16 - Past Medical/Surgical History Diabetic: No -: Hypertension -: CVA Past Surgical History: Patient denies surgical history Psychosocial/ Personal History: Patient has a son. - Family History Sister -: Stroke Mother -: Heart disease, Diabetes - Social History Smoking Status: Never smoker Alcohol use: No CD- Drugs: No Caffeine use: Yes Place of Residence: Home Review of Systems General: Sweats Respiratory: Shortness of Breath Cardiovascular: Chest Pain Neurological: Incoordination Physical Examination - Physical Exam General: Alert, In no apparent distress HEENT: Atraumatic, PERRLA, EOMI, Sclerae nonicteric Neck: Supple, 2+ carotid pulse no bruit, No LAD, Without JVD or thyroid abnormality Respiratory: Clear to auscultation bilaterally, Normal air movement Cardiovascular: Regular rate/rhythm, Normal S1 S2 Gastrointestinal: Normal bowel sounds, No tenderness Musculoskeletal: No tenderness Integumentary: No rashes Neurological: Sensation intact, Normal affect, Abnormal strength - Studies Laboratory Data (last 24 hrs) 12/22/21 17:38: PT 12.1, INR 1.10 12/22/21 16:13: WBC 3.3 L, Hgb 14.7, Hct 44.2, Plt Count 127 L 12/22/21 16:13: Sodium 140, Potassium 4.6, BUN 14, Creatinine 1.85 H, Glucose 82, Magnesium 2.1, Total Bilirubin 0.8, AST 26, ALT 30, Alkaline Phosphatase 31 L Microbiology Data (last 24 hrs): 12/22/21 17:02 Nasopharnyx Influenza Type A Antigen Screen - Final 12/22/21 17:02 Nasopharnyx Influenza Type B Antigen Screen - Final Assessment and Plan - Problems (Diagnosis) (1) Chest pain Current Visit: Yes Status: Acute Qualifiers: Chest pain type: unspecified Qualified Code(s): R07.9 - Chest pain, unspecified (2) COVID-19 Current Visit: Yes Status: Acute (3) GWENDOLYN (acute kidney injury) Current Visit: Yes Status: Acute (4) Hypertension Current Visit: Yes Status: Chronic Qualifiers: Hypertension type: primary hypertension Qualified Code(s): I10 - Essential (primary) hypertension - Plan -Initial troponin negative. Trend q6h -Cardiology consult -Gentle IV hydration for GWENDOLYN -Vitamin C, zinc, aspirin, atorvastatin daily -Physical therapy consult -Monitor on telemetry -TSH and lipid panel ordered -Monitor and replete electrolytes per protocol -Reconcile and continue home medications -Lovenox for VTE ppx -Full code Discharge Plan: Home Plan to discharge in: 24 Hours - Advance Directives Does patient have a Living Will: Yes Does patient have a Durable POA for Healthcare: Yes - Code Status/Comfort Care Code Status Assessed: Yes (Full) Critical Care: No Time Spent Managing Pts Care (In Minutes): 50
[2021-12-22 21:51] VITALS: O2SAT 98
[2021-12-22] MEDS ORDERED: ONDANSETRON 4 MG/2 ML VIAL IV PRN (21:52)
[2021-12-22] MEDS ORDERED: BENZONATATE 100 MG CAP PO PRN (21:52)
[2021-12-22] MEDS ORDERED: NA CHLORIDE 0.9% 1,000 ML IV SCH (21:52)
[2021-12-22] MEDS ORDERED: ACETAMINOPHEN 500 MG TAB PO PRN (21:52)
[2021-12-22 21:55] VITALS: BMI 26.1
[2021-12-23 06:39] LABS: Absolute Lymphocytes (CBC) 1.3 K/uL (0.7-4.9); Hematocrit 40.6 % (39.6-49.0); Lymphocytes % 34.9 % (15.3-44.8); MCV 93.4 fL (80-100); MPV 8.3 fL (7.6-11.3); RBC Red Blood Cell Count 4.35 M/uL (4.33-5.43)
[2021-12-23 06:40] LABS: Phosphorus 2.8 mg/dL (2.5-4.9); Thyroid Stimulating Hormone 0.654 uIU/mL (0.360-3.740); Troponin High Sensitivity 11.8 pg/mL (<58.9)
[2021-12-23 06:41] LABS: Magnesium 1.7 mg/dL (1.8-2.4)
[2021-12-23 08:45] VITALS: BP 151/88; TEMP 98.6
[2021-12-23] MEDS ORDERED: ASCORBIC ACID 500 MG TABLET PO SCH (09:00)
[2021-12-23] MEDS ORDERED: ZINC SULFATE 220 MG CAP PO SCH (09:00)
[2021-12-23] MEDS ORDERED: ENOXAPARIN 40 MG/0.4 ML SQ SCH (09:00)
[2021-12-23] MEDS ORDERED: ASPIRIN EC 81 MG TAB PO SCH (09:00)
--- NOTE | 2021-12-23 11:53 | P.DS ---
Admission Date: 12/22/21 Discharge Date: 12/23/21 Disposition: ROUTINE DISCHARGE Discharge Condition: FAIR Reason for Admission: Chest Pain, COVID+ Consultations: Cardiology-Dr. Luna. - Problems (1) GWENDOLYN (acute kidney injury) Status: Acute (2) COVID-19 Status: Acute (3) Chest pain Status: Acute Qualifiers: Chest pain type: unspecified Qualified Code(s): R07.9 - Chest pain, unspecified (4) Hypertension Status: Chronic Qualifiers: Hypertension type: primary hypertension Qualified Code(s): I10 - Essential (primary) hypertension Brief History of Present Illness: Patient is a 66-year-old male with hypertension and history of CVA with left sided deficits who presented to the ED with complaints of fever, chest pain, and cough x 24 hours. He reports the chest pain is midsternal, feels like a stabbing pain, but does not radiate anywhere. Son reports he has been unsteady on his feet. Work-up in ED significant for creatinine 1.85, troponin WNL, EKG without ST changes, COVID-positive, chest x-ray negative. He was given Rocephin, azithromycin, 162 mg aspirin, 1 L fluid, Lopressor, Pepcid, and therapeutic Lovenox in the ED. Upon assessment for admission, patient reported his chest pain has subsided. He did not know he was COVID-positive. He has been vaccinatedx2. Patient denied any cardiac history or previous cardiac work- up. Patient placed under observation for ACS rule out. Hospital Course: Troponin trended negative. Patient was asymptomatic, no chest pain or shortness of breath. Seen by cardiology-Dr. Luna. Chest pain considered to be atypical, related to the coughing. Serum creatinine trended down with IV hydration. ACS was ruled out. Patient is deemed stable for discharge. He will follow with Dr. Luna as an outpatient for arrangement for stress test. Vital Signs/Physical Exam: Temp Pulse Resp BP Pulse Ox 98.6 F 74 18 151/88 H 96 12/23/21 08:00 12/23/21 08:00 12/23/21 08:00 12/23/21 08:00 12/23/21 08:00 General: Alert, In no apparent distress, Oriented x3 HEENT: Mucous membr. moist/pink Neck: Supple, JVD not distended Respiratory: Clear to auscultation bilaterally, Normal air movement Cardiovascular: No edema, Regular rate/rhythm, Normal S1 S2 Gastrointestinal: Normal bowel sounds, Soft and benign, Non-distended, No tenderness Musculoskeletal: No swelling, No tenderness Integumentary: No rashes Neurological: Normal speech, Other (Residual left-sided weakness) Laboratory Data at Discharge: WBC 3.6 K/uL (4.3-10.9) L 12/23/21 05:33 Hgb 13.9 g/dL (13.6-17.9) 12/23/21 05:33 Hct 40.6 % (39.6-49.0) 12/23/21 05:33 Plt Count 101 K/uL (152-406) L D 12/23/21 05:33 PT 12.1 SECONDS (9.5-12.5) 12/22/21 17:38 INR 1.10 12/22/21 17:38 Sodium 139 mmol/L (136-145) 12/23/21 05:33 Potassium 4.0 mmol/L (3.5-5.1) 12/23/21 05:33 BUN 14 mg/dL (7-18) 12/23/21 05:33 Creatinine 1.65 mg/dL (0.55-1.3) H 12/23/21 05:33 Glucose 81 mg/dL (74-106) 12/23/21 05:33 Phosphorus 2.8 mg/dL (2.5-4.9) 12/23/21 05:33 Magnesium 1.7 mg/dL (1.8-2.4) L 12/23/21 05:33 Total Bilirubin 0.8 mg/dL (0.2-1.0) 12/22/21 16:13 AST 26 U/L (15-37) 12/22/21 16:13 ALT 30 U/L (12-78) 12/22/21 16:13 Alkaline Phosphatase 31 U/L (45-117) L 12/22/21 16:13 Triglycerides 103 mg/dL (<150) 12/23/21 05:33 Cholesterol 105 mg/dL (<200) 12/23/21 05:33 HDL Cholesterol 41 mg/dL (40-60) 12/23/21 05:33 Cholesterol/HDL Ratio 2.56 12/23/21 05:33 Home Medications: Finasteride [Proscar] 5 mg PO DAILY 04/13/16 Hydralazine [Apresoline*] 25 mg PO QID 04/13/16 Labetalol HCl [Trandate] 200 mg PO TID 04/13/16 Tamsulosin [Flomax*] 0.4 mg PO BID 04/13/16 Benzonatate [Tessalon Perle*] 100 mg PO TID PRN #30 cap 12/23/21 Zinc Sulfate [Zinc Sulfate*] 220 mg PO DAILY #30 cap 12/23/21 New Medications: Benzonatate [Tessalon Perle*] 100 mg PO TID PRN #30 cap PRN Reason: Cough Zinc Sulfate [Zinc Sulfate*] 220 mg PO DAILY #30 cap Diet: AHA Activity: Ad brianne Followup: Kentrell Luna MD [ACTIVE - CAN ADMIT] - 1 Week (For arrangement for Stress test) Joe Sierra MD [Primary Care Provider] - 1-2 Weeks (Call to schedule appointment)
--- NOTE | 2021-12-23 13:06 | EKG ---
Test Date: 2021-12-22 Test Time: 16:23:10 Inventory Representative: COLLIN MEASUREMENT RESULTS: Intervals: Rate: 82 IL: 194 QRSD: 94 QT: 384 QTc: 448 [place]: P: 61 IL: 194 QRS: 14 T: 57 INTERPRETIVE STATEMENTS: Normal sinus rhythm Normal ECG Compared to ECG 12/22/2021 16:20:55 Ventricular premature complex(es) no longer present ST (T wave) deviation no longer present Electronically Signed On 12-23-21 13:04:24 CDT by James Sylvester
--- NOTE | 2021-12-23 13:36 | ECHO ---
HEIGHT: 5 ft 8 in WEIGHT: 172 lb 0 oz DATE OF STUDY: 12/23/[address]: Negin Velasco 2-DIMENSIONAL: YES M.MODE: YES DOPPLER: YES COLOR FLOW: YES TDS: NO PORTABLE: YES DEFINITY: NO BUBBLE STUDY: NO DIAGNOSIS: CHEST PAIN CARDIAC HISTORY: CATHERIZATION: NO SURGERY: NO PROSTHETIC VALVE: NO PACEMAKER: NO MEASUREMENTS (cm) DIASTOLIC (NORMALS) SYSTOLIC (NORMALS) IVSd 1.0 (0.6-1.2) LA Diam 2.1 (1.9-4.0) LVEF 55-60% LVIDd 3.0 (3.5-5.7) LVIDs 1.7 (2.0-3.5) %FS 45% LVPWd 1.1 (0.6-1.2) Ao Diam 2.8 (2.0-3.7) 2 DIMENSIONAL ASSESSMENT: RIGHT ATRIUM: NORMAL LEFT ATRIUM: NORMAL RIGHT VENTRICLE: NORMAL LEFT VENTRICLE: NORMAL TRICUSPID VALVE: NORMAL MITRAL VALVE: PULMONIC VALVE: NORMAL AORTIC VALVE: NORMAL PERICARDIAL EFFUSION: NONE AORTIC ROOT: NORMAL LEFT VENTRICULAR WALL MOTION: NORMAL DOPPLER/COLOR FLOW: MILD MITRAL REGURGITATION. COMMENTS: NORMAL LEFT VENTRICULAR EJECTION FRACTION 55-60%. NORMAL WALL MOTION. MILD MITRAL REGURGITATION. TECHNOLOGIST: Montez HIDALGO
--- NOTE | 2021-12-25 10:56 | CON ---
Date of Consultation: 12/23/2021 The patient had come in with COVID positive and chest pain. He was admitted to Dr. Linares's service on 12/22/2021. I saw the patient on 12/23/2021. History Of Present Illness: Mr. Molina is 66 years old. Has had a history of hypertension and stroke in the past. He came in with substernal chest pain radiating to the left arm with some cough, light headedness, and shortness of breath. His pain was not exertional. He denies any nausea, vomiting, d iaphoresis, PND, orthopnea, pedal edema, palpitations, or syncope. It was hard to obtain a good hist ory from him because of his previous strokes. Allergies: HE IS ALLERGIC TO IBUPROFEN. Review of Systems: Negative. Social History: Negative. Family History: Negative. Medications: At home include hydralazine, labetalol, and atorvastatin. Physical Examination: Vital Signs: Stable, afebrile. HEENT: Negative. Neck: Supple with no bruit. Chest: Clear to auscultation and percussion. Cardiac: Revealed a regular rhythm and rate. No murmurs, gallops, or rubs. Abdomen: Benign. Extremities: Revealed no clubbing, cyanosis, or edema. Diagnostic Data: Showed a creatinine 1.65. His BNP and troponin were negative. He was COVID positi ve. His chest x-ray was negative. His EKG was negative. Echocardiogram that was done showed a norm al ejection fraction of 55% to 60% Impression And Plan: Atypical chest pain in a gentleman with stroke in the past and has a history of hypertension and dyslipidemia. Echocardiogram was normal. EKG is normal. Chest x-ray is normal. He has normal troponin, normal BNP. He has a creatinine of 1.85, which is stage 3, chronic renal dis ease. I am comfortable with him going home. I think it would be good to have him do an outpatient L exiscan at his convenience in the near future. BETSY/ASHLEY Voice ID: [id number] Report ID: [id number]
[2021-12-25 12:54] LABS: Urine Blood 2+ (Negative); Urine Glucose Negative (Negative); Urine Protein Negative (Negative); Urine Specific Gravity 1.025 (1.005-1.030)
== END 2021-12-23 12:23 | disposition home or self-care (01) ==
LOC: ER 15:12 → ERHOLD 20:43 → 2ND 21:08
PROVIDERS: ADMIT Internal Medicine; ATTEND Internal Medicine
DX: R07.89 Other chest pain (principal); N17.9 Acute kidney failure, unspecified; I12.9 Hypertensive chronic kidney disease with stage 1 through stage 4 chronic kidney disease, or unspecified chronic kidney disease; N18.30 Chronic kidney disease, stage 3 unspecified; U07.1 COVID-19; I69.90 Unspecified sequelae of unspecified cerebrovascular disease; R26.81 Unsteadiness on feet; E78.5 Hyperlipidemia, unspecified; Z79.899 Other long term (current) drug therapy; Z88.6 Allergy status to analgesic agent; Z82.3 Family history of stroke; Z83.3 Family history of diabetes mellitus
CPT/HCPCS: 93005; 93306; 87040 ×2; 87088; 85025 ×2; 87086; 80048 ×2; 36415; 83735 ×2; 84100; 85610; 80061; 80076; 83605; 84443; 81003; 84484 ×3; 83880; 87804 ×2; 71045; 96375; 96372; 96374; 99285; U0003; J0456; J1650; J7050; J7030 ×2; G0378 ×3

== ENCOUNTER → 2023-07-27 | Emergency (ER) | payer MEDICARE ==
[~2023-07-27] MED LIST: METOCLOPRAMIDE 10 MG/2mL INJ ONE; NA CHLORIDE 0.9% 1,000 ML ONE
--- NOTE | 2023-07-27 12:32 | RAD REPORT ---
EXAM DESCRIPTION: CT - Head Brain Wo Cont - 07/27/2023 12:24 pm CLINICAL HISTORY: Headache COMPARISON: 2021 TECHNIQUE: Computed axial tomography of the head was obtained. IV contrast was not requested. All CT scans are performed using dose optimization technique as appropriate and may include automated exposure control or mA/KV adjustment according to patient size. FINDINGS: An intracranial bleed is not seen The ventricles are normal in caliber No extra-axial fluid collection is noted. Old left cerebral infarction Mild to moderate low-density areas within periventricular, deep and subcortical white matter likely r epresent ischemic changes secondary to small vessel disease. Fluid within the sinuses/ mastoids is not seen. IMPRESSION: No acute intracranial abnormality is seen If patient's symptoms persist MRI of the brain would be recommended
[2023-07-27 13:00] LABS: Absolute Lymphocytes (CBC) 1.7 K/uL (0.7-4.9); Hematocrit 45.8 % (39.6-49.0); MCV 91.6 fL (80-100); MPV 7.4 fL (7.6-11.3); Platelets 169 thou/uL (152-406); RBC Red Blood Cell Count 5.01 M/uL (4.33-5.43)
[2023-07-27 13:15] LABS: Albumin 3.9 g/dL (3.4-5.0); Bilirubin Total 0.9 mg/dL (0.2-1.0); Protein, Total 8.3 g/dL (6.4-8.2)
[2023-07-27 13:16] LABS: Potassium 4.1 mEq/L (3.5-5.1)
--- NOTE | 2023-07-27 13:23 | ER ---
Nurse's Notes [facility] Name: George Molina Age: 68 yrs Sex: Male : 1955 Arrival Date: 07/27/2023 Time: 11:43 Bed 14 Private MD: Diagnosis: Headache Presentation: 07/27 12:04 Chief complaint: Patient states: sharp pain to back of head radiating down his neck , iw started at 1 am today , went away and came back. Coronavirus screen: At this time, the client does not indicate any symptoms associated with coronavirus-19. Ebola Screen: Patient negative for fever greater than or equal to 101.5 degrees Fahrenheit, and additional compatible Ebola Virus Disease symptoms Patient denies exposure to infectious person. Patient denies travel to an Ebola-affected area in the 21 days before illness onset. No symptoms or risks identified at this time. Initial Sepsis Screen: Does the patient meet any 2 criteria? No. Patient's initial sepsis screen is negative. Does the patient have a suspected source of infection? No. Patient's initial sepsis screen is negative. Risk Assessment: Do you want to hurt yourself or someone else? Patient reports no desire to harm self or others. Onset of symptoms was July 27, 2023. 12:04 Method Of Arrival: Wheelchair iw 12:04 Acuity: FRANCY 3 iw Triage Assessment: 12:15 Headache History: Denies prior headaches. General: Appears in no apparent distress. rs5 comfortable, Behavior is calm, appropriate for age. Pain: Also complains of. Pain: Complains of pain in back of head Pain radiates to right side of neck Pain currently is 5 out of 10 on a pain scale. Pain began 4 hours ago. Historical: - Allergies: 12:06 Ibuprofen; iw - PMHx: 12:06 Cerebrovascular accident; Hypertensive disorder; iw - Immunization history:: Adult Immunizations not up to date. - Social history:: Smoking status: Patient denies any tobacco usage or history of. Screenin:15 [facility] ED Fall Risk Assessment (Adult) History of falling in the last 3 months, rs5 including since admission No falls in past 3 months (0 pts) Confusion or Disorientation No (0 pts) Intoxicated or Sedated No (0 pts) Impaired Gait No (0 pts) Mobility Assist Device Used No (0 pt) Altered Elimination No (0 pt) Score/Fall Risk Level 0 - 2 = Low Risk Oriented to surroundings, Maintained a safe environment. Abuse screen: Denies threats or abuse. Nutritional screening: No deficits noted. Tuberculosis screening: No symptoms or risk factors identified. Assessment: 12:15 General: Appears in no apparent distress. uncomfortable, Behavior is calm, cooperative. rs5 Pain: Complains of pain in back of head Pain radiates to right side of neck Pain currently is 5 out of 10 on a pain scale. Quality of pain is described as aching, Is continuous. Neuro: Level of Consciousness is awake, alert, obeys commands, Oriented to person, place, time, situation. Cardiovascular: Patient's skin is warm and dry. Rhythm is regular. Respiratory: Airway is patent Respiratory effort is even, unlabored, Respiratory pattern is regular, symmetrical. GI: Abdomen is round non-distended, Abd is soft and non tender X 4 quads. : No signs and/or symptoms were reported regarding the genitourinary system. EENT: No signs and/or symptoms were reported regarding the EENT system. Derm: Skin is intact, Skin is pink, warm \T\ dry. Musculoskeletal: Circulation, motion, and sensation intact. Range of motion: intact in all extremities. 13:25 Reassessment: Patient and/or family updated on plan of care and expected duration. Pain rs5 level reassessed. Patient is alert, oriented x 3, equal unlabored respirations, skin warm/dry/pink. Patient denies pain at this time. Patient states feeling better. Patient states symptoms have improved. Vital Signs: 12:04 BP 166 / 109; Pulse 88; Resp 16; Temp 98.5; Pulse Ox 99% on R/A; Weight 77.11 kg; iw Height 5 ft. 9 in. ; 12:29 BP 146 / 78; Pulse 80; Resp 17; Temp 98.2(O); Pulse Ox 99% ; rs5 13:26 BP 135 / 74; Pulse 77; Resp 17; Pulse Ox 99% on R/A; rs5 12:04 Body Mass Index 25.10 (77.11 kg, 175.26 cm) iw ED Course: 11:45 Patient arrived in ED. rg4 11:56 Tani Clark MD is Attending Physician. ec2 12:06 Triage completed. iw 12:07 Arm band placed on. iw 12:15 Patient has correct armband on for positive identification. Call light in reach. Side rs5 rails up X2. 12:20 Inserted saline lock: 24 gauge in left hand, using aseptic technique. rs5 12:24 CT Head Brain wo Cont In Process Unspecified. EDMS 12:41 Moise Pepe, RN is Primary Nurse. rs5 13:25 No provider procedures requiring assistance completed. rs5 13:40 IV discontinued, intact, bleeding controlled, No redness/swelling at site. Pressure rs5 dressing applied. Administered Medications: 12:45 Drug: NS 0.9% IV 1000 ml IV at 1 bolus Per protocol; 1000 mL bolus Route: IV; Rate: 1 rs5 bolus; Site: left hand; 13:00 Follow up: Response: No adverse reaction rs5 12:45 Drug: metoCLOPramide IVP 10 mg IVP once; over 1 to 2 minutes Route: IVP; Site: left rs5 hand; 13:00 Follow up: Response: No adverse reaction rs5 Medication: 13:25 VIS not applicable for this client. rs5 Outcome: 13:23 Discharge ordered by . ec2 13:40 Discharged to home ambulatory, rs5 13:40 Condition: stable 13:40 Discharge instructions given to patient, family, Instructed on discharge instructions, follow up and referral plans. Demonstrated understanding of instructions, follow-up care, 13:42 Patient left the ED. rs5 Signatures: Dispatcher [employer] Lianet Lee RN RN iw Garcia, Rubi 4 Moise Pepe RN RN rs5 Tani Clark MD MD ec2
--- NOTE | 2023-07-27 13:23 | EDPHYS ---
Physician Documentation [facility] Name: George Molina Age: 68 yrs Sex: Male : 1955 Arrival Date: 07/27/2023 Time: 11:43 Bed 14 Private MD: ED Physician Tani Clark HPI: 07/27 12:13 This 68 yrs old Male presents to ER via Wheelchair with complaints of ec2 Headache, Neck Pain, <24hrs Old. 12:13 Patient arrives today due to concern for headache ongoing since earlier this morning. ec2 Patient reports no falls or injuries or trauma. 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 No vomiting, no diarrhea, no cough or cold symptoms, no fevers. Has not taken any medications for symptoms.. Historical: - Allergies: 12:06 Ibuprofen; iw - PMHx: 12:06 Cerebrovascular accident; Hypertensive disorder; iw - Immunization history:: Adult Immunizations not up to date. - Social history:: Smoking status: Patient denies any tobacco usage or history of. ROS: 12:13 Constitutional: as per hpi ec2 Exam: 12:13 Constitutional: GEN: NAD Head: atraumatic Eyes: EOMI Ears: External ears are ec2 normal. CV: regular rate LUNGS: no respiratory distress ABD: non-distended SKIN: no evidence of rashes MSK: no evidence of trauma NEURO: Paralysis of the right upper and lower extremity per baseline, left upper and lower extremity without deficit Vital Signs: 12:04 BP 166 / 109; Pulse 88; Resp 16; Temp 98.5; Pulse Ox 99% on R/A; Weight 77.11 kg; iw Height 5 ft. 9 in. ; 12:29 BP 146 / 78; Pulse 80; Resp 17; Temp 98.2(O); Pulse Ox 99% ; rs5 13:26 BP 135 / 74; Pulse 77; Resp 17; Pulse Ox 99% on R/A; rs5 12:04 Body Mass Index 25.10 (77.11 kg, 175.26 cm) iw MDM: 12:08 Patient medically screened. ec2 12:13 Data reviewed: vital signs. ED course: Patient arrives today for evaluation of ec2 headache. Examination remarkable for well-appearing nontoxic individual is otherwise in no acute distress. Will obtain lab work, CT imaging of the head. Currently considered process such as intracranial brain bleed, low suspicion for stroke. Will treat the patient symptoms reassess the patient.. 12:43 ED course: CT scan of the head shows no acute intracranial abnormality.. ec2 13:19 ED course: CBC and metabolic profile with no acute concerns, patient with known history ec2 of CKD per family. . 13:23 ED course: On reassessment patient with improved symptoms. Will discharge home. Return ec2 precautions given.. 07/27 12:13 Order name: CBC with Diff; Complete Time: 13:19 ec2 07/27 12:13 Order name: CMP; Complete Time: 13: ec2 07/27 12:13 Order name: CT Head Brain wo Cont; Complete Time: :43 ec2 Administered Medications: 12:45 Drug: NS 0.9% IV 1000 ml IV at 1 bolus Per protocol; 1000 mL bolus Route: IV; Rate: 1 rs5 bolus; Site: left hand; 13:00 Follow up: Response: No adverse reaction rs5 12:45 Drug: metoCLOPramide IVP 10 mg IVP once; over 1 to 2 minutes Route: IVP; Site: left rs5 hand; 13:00 Follow up: Response: No adverse reaction rs5 Disposition Summary: 07/27/23 13:23 Discharge Ordered Notes: Location: Home ec2 Condition: Stable ec2 Diagnosis - Headache ec2 Followup: ec2 - With: Private Physician - When: - Reason: Recheck today's complaints Discharge Instructions: - Discharge Summary Sheet ec2 - General Headache Without Cause ec2 Forms: - Medication Reconciliation Form ec2 - Thank You Letter ec2 - Antibiotic Education ec2 - Prescription Opioid Use ec2 - Patient Portal Instructions ec2 - Leadership Thank You Letter ec2 Signatures: Dispatcher [employer] Lianet Lee RN RN iw Moise Pepe RN RN rs5 Tani Clark MD MD ec2 Corrections: (The following items were deleted from the chart) 12:16 12:15 Patient medically screened. ec2 ec2
[2023-07-27 14:23] VITALS: BP 135/74; TEMP 98.2; O2SAT 99
== END ==
LOC: ER 11:43
DX: R51.9 Headache, unspecified (principal); M54.2 Cervicalgia; Z86.73 Personal history of transient ischemic attack (TIA), and cerebral infarction without residual deficits; I10 Essential (primary) hypertension; Z88.6 Allergy status to analgesic agent
CPT/HCPCS: 85025; 36415; 80053; 70450; 96374; 99284; J2765; J7030

== ENCOUNTER 2023-12-19 15:30 | Emergency (ER) | payer MEDICARE ==
[2023-12-19 16:43] LABS: Absolute Eosinophils 0.2 K/uL (0-0.5); Absolute Lymphocytes (CBC) 1.9 K/uL (0.7-4.9); Absolute Monocytes 0.4 K/uL (0.1-1.3); Absolute Neutrophil 4.1 K/uL (1.8-8.0); Basophils % 0.7 % (0-1.3); Eosinophils % 2.4 % (0-4.4); Hemoglobin 14.5 g/dL (13.6-17.9); Lymphocytes % 28.8 % (15.3-44.8); MPV 7.8 fL (7.6-11.3); Monocytes % 6.7 % (3.3-12.3); Neutrophils % 61.4 % (41.7-73.7); Platelets 178 thou/uL (152-406); RBC Red Blood Cell Count 4.54 M/uL (4.33-5.43); Red Cell Distribution Width 14.8 % (12.1-15.2)
[2023-12-19 17:01] LABS: Anion Gap 7.3 mEq/L (5.0-15.0); Potassium 3.3 mEq/L (3.5-5.1); Troponin High Sensitivity 11.9 pg/mL (<58.9)
[2023-12-19] MEDS ORDERED: MORPHINE 4 MG/ML SYR ONE (18:36)
--- NOTE | 2023-12-19 19:33 | RAD REPORT ---
EXAM DESCRIPTION: RAD - Chest Single View - 12/19/2023 4:18 pm CLINICAL HISTORY: CHEST PAIN Chest pain. COMPARISON: No comparisons FINDINGS: Portable technique limits examination quality. The lungs are grossly clear. The heart is normal in size. No displaced fractures. IMPRESSION: No acute intrathoracic process suspected.
--- NOTE | 2023-12-19 21:10 | EDPHYS ---
Physician Documentation [facility] Name: George Molina Age: 68 yrs Sex: Male : 1955 Arrival Date: 12/19/2023 Time: 15:30 Bed 16 Private MD: ED Physician Bhupinder Santana HPI: 12/18 19:29 This 68 yrs old Male presents to ER via Wheelchair with complaints of Chest Pain, Flank ms3 Pain, Neck Pain, >24Hrs Old. 19:29 68-year-old male with past medical history of hypertension and CVA [place] [facility] [place] for chest pain and right flank pain that began 1 hour prior to arrival. Patient states he also had shortness of breath associated with the symptoms. Patient describes the discomfort as 7/10. Patient denies any alleviating or inciting factors. Historical: - Allergies: 15:44 Ibuprofen; ap3 - PMHx: 15:44 Cerebrovascular accident; Hypertensive disorder; ap3 - Immunization history:: Client reports having NOT received the Covid vaccine. - Infectious Disease History:: Denies. - Social history:: Smoking status: Patient denies any tobacco usage or history of. ROS: 19:29 Constitutional: Negative for fever, and chills. Neck: Negative for injury, pain, and ms3 swelling, Respiratory: Negative for shortness of breath, cough, wheezing, and pleuritic chest pain, Abdomen/GI: Negative for abdominal pain, nausea, vomiting, diarrhea, and constipation, MS/Extremity: Negative for injury and deformity, Skin: Negative for injury, rash, and discoloration, 19:29 Cardiovascular: Positive for chest pain, Exam: 19:29 Constitutional: This is a well developed, well nourished patient who is awake, alert, ms3 and in no acute distress. Head/Face: Normocephalic, atraumatic. Chest/axilla: Normal chest wall appearance and motion. Nontender with no deformity. Cardiovascular: Regular rate and rhythm with a normal S1 and S2. No gallops, murmurs, or rubs. Normal PMI, no JVD. No pulse deficits. Respiratory: Lungs have equal breath sounds bilaterally, clear to auscultation and percussion. No rales, rhonchi or wheezes noted. No increased work of breathing, no retractions or nasal flaring. Abdomen/GI: Soft, non-tender, with normal bowel sounds. No distension or tympany. No guarding or rebound. No evidence of tenderness throughout. Skin: Warm, dry with normal turgor. Normal color with no rashes, no lesions, and no evidence of cellulitis. MS/ Extremity: Pulses equal, no cyanosis. Neurovascular intact. Full, normal range of motion. 19:31 ECG was reviewed by the Attending Physician. ms3 Vital Signs: 15:42 BP 165 / 99; Pulse 110; Resp 18; Pulse Ox 97% on R/A; Weight 79.38 kg; Height 5 ft. 10 ap3 in. ; Pain 7/10; 18:24 BP 160 / 71; Pulse 89; Resp 17; Pulse Ox 99% on R/A; rs5 20:06 BP 170 / 108; Pulse 70; Resp 16; Pulse Ox 98% on R/A; Pain 2/10; hb 15:42 Body Mass Index 25.11 (79.38 kg, 177.8 cm) ap3 15:42 Pain Scale: Adult ap3 20:06 Pain Scale: Adult hb MDM: 15:57 Patient medically screened. ms3 19:29 Differential diagnosis: abnormal EKG, acute myocardial infarction, pulmonary embolus. ms3 21:06 HEART Score: History: Slightly Suspicious (0), ECG: Normal (0), Age: > 45 and < 65 ms3 years (1), Risk Factors: 1 or 2 risk factors (1), Troponin: < or = 1 x Normal Limit (0), Total Score = 2. Data reviewed: vital signs, nurses notes, lab test result(s), EKG, radiologic studies, and as a result, I will discharge patient. Consideration of Admission/Observation Escalation of care including admission/observation considered. HEART score 2. I considered the following discharge prescriptions or medication management in the emergency department Medications were administered in the Emergency Department. See MAR. Independent interpretation of the following test(s) in the Emergency Department EKG: See my EKG interpretation above. Counseling: I had a detailed discussion with the patient and/or guardian regarding the historical points, exam findings, and any diagnostic results supporting the discharge/admit diagnosis, lab results, radiology results, the need for outpatient follow up, to return to the emergency department if symptoms worsen or persist or if there are any questions or concerns that arise at home. Special discussion: Based on the patient's history, exam, and Dx evaluation, there is no indication for emergent intervention or inpatient Tx. It is understood by the patient/guardian that if the Sx's persist or worsen they need to return immediately for re-evaluation. ED course: Discussed labs, EKG, chest x-ray with patient. Patient to follow-up with primary care physician in 2 to 3 days. Patient understands and agrees with plan. All questions were answered. Return precautions discussed include worsening symptoms, or any other concerns. 12/18 15:56 Order name: Basic Metabolic Panel; Complete Time: 21:06 ms3 12/18 15:56 Order name: CBC with Diff; Complete Time: 21: ms3 12/18 15:56 Order name: D-Dimer; Complete Time: 21:06 ms3 12/18 15:56 Order name: Troponin HS; Complete Time: 21:06 ms3 12/18 21:05 Order name: Troponin High Sensitivity EDMS 12/18 15:56 Order name: XRAY Chest (1 view); Complete Time: 21:06 ms3 12/18 15:56 Order name: Cardiac monitoring; Complete Time: 18:21 ms3 12/18 15:56 Order name: EKG - Nurse/Tech; Complete Time: 18:21 ms3 12/18 15:56 Order name: IV Saline Lock; Complete Time: 18:21 ms3 12/18 15:56 Order name: Labs collected and sent; Complete Time: 18:21 ms3 12/18 15:56 Order name: O2 Per Protocol; Complete Time: 18:21 ms3 12/18 15:56 Order name: O2 Sat Monitoring; Complete Time: 18:21 ms3 EC:31 Rate is 110 beats/min. Rhythm is regular. QRS [place] is Normal. [place] interval is normal. ms3 QRS interval is normal. Clinical impression: Sinus tachycardia. Interpreted by me. Reviewed by me. Administered Medications: 18:35 Drug: morphine IVP or IV 4 mg IVP once over 4 mins Route: IVP; Infused Over: 4 mins; rs5 Site: left antecubital; Disposition Summary: 12/19/23 20:29 Discharge Ordered Notes: Location: Home ms3 Condition: Stable ms3 Diagnosis - Chest pain, unspecified ms3 Followup: ms3 - With: James Sylvester MD - When: 2 - 3 days - Reason: Recheck today's complaints Discharge Instructions: - Discharge Summary Sheet ms3 - Nonspecific Chest Pain, Adult ms3 Forms: - Medication Reconciliation Form ms3 - Antibiotic Education ms3 - Prescription Opioid Use ms3 - Patient Portal Instructions ms3 - Leadership Thank You Letter ms3 Signatures: Dispatcher [employer] Ekaterina Maharaj RN RN ap3 Bhupinder Santana DO DO ms3 Moise Pepe RN RN rs5 Corrections: (The following items were deleted from the chart) 15:56 15:56 Chest Single View+RAD.RAD.BRZ ordered. EDMS EDMS
--- NOTE | 2023-12-19 21:10 | ER ---
Nurse's Notes [facility] Name: George Molina Age: 68 yrs Sex: Male : 1955 Arrival Date: 12/19/2023 Time: 15:30 Bed 16 Private MD: Diagnosis: Chest pain, unspecified Presentation: 12/18 15:42 Chief complaint: Patient states: he was ambulating when he started having right sided ap3 flank pain and chest pain that radiated to his back. patient states his pain is currently a 7/10 on the pain scale. patient denies nausea or vomiting at this time. Coronavirus screen: At this time, the client does not indicate any symptoms associated with coronavirus-19. Ebola Screen: No symptoms or risks identified at this time. Initial Sepsis Screen: Does the patient meet any 2 criteria? HR > 90 bpm. No. Patient's initial sepsis screen is negative. Does the patient have a suspected source of infection? No. Patient's initial sepsis screen is negative. Risk Assessment: Do you want to hurt yourself or someone else? Patient reports no desire to harm self or others. Onset of symptoms was December 19, 2023. 15:42 Method Of Arrival: Wheelchair ap3 15:42 Acuity: FRANCY 2 ap3 Triage Assessment: 15:44 General: Appears in no apparent distress. Behavior is calm, cooperative, appropriate ap3 for age. Pain: Complains of pain in right flank, chest Pain currently is 7 out of 10 on a pain scale. Neuro: Level of Consciousness is awake, alert, obeys commands, Oriented to person, place, time, situation. Cardiovascular: Reports chest pain, diaphoresis, Patient's skin is warm and dry. Respiratory: Airway is patent Respiratory effort is even, unlabored, Respiratory pattern is regular, symmetrical. Historical: - Allergies: 15:44 Ibuprofen; ap3 - PMHx: 15:44 Cerebrovascular accident; Hypertensive disorder; ap3 - Immunization history:: Client reports having NOT received the Covid vaccine. - Infectious Disease History:: Denies. - Social history:: Smoking status: Patient denies any tobacco usage or history of. Screenin:45 Abuse screen: Denies threats or abuse. Nutritional screening: No deficits noted. ap3 Tuberculosis screening: No symptoms or risk factors identified. 15:45 [facility] ED Fall Risk Assessment (Adult) History of falling in the last 3 months, rs5 including since admission No falls in past 3 months (0 pts) Confusion or Disorientation No (0 pts) Intoxicated or Sedated No (0 pts) Impaired Gait No (0 pts) Mobility Assist Device Used No (0 pt) Altered Elimination No (0 pt) Score/Fall Risk Level 0 - 2 = Low Risk Oriented to surroundings, Maintained a safe environment. Assessment: 15:35 General: Appears in no apparent distress. uncomfortable, Behavior is calm, cooperative. rs5 Pain: Complains of pain in chest and right flank Pain radiates to back Pain currently is 6 out of 10 on a pain scale. Quality of pain is described as aching, Pain began Is continuous. Neuro: Level of Consciousness is awake, alert, obeys commands, Oriented to person, place, time, situation. Cardiovascular: Patient's skin is warm and dry. Respiratory: Airway is patent Respiratory effort is even, unlabored, Respiratory pattern is regular, symmetrical. GI: Abdomen is round non-distended, Abd is soft and non tender X 4 quads. : No signs and/or symptoms were reported regarding the genitourinary system. EENT: No signs and/or symptoms were reported regarding the EENT system. Derm: Skin is intact, Skin is pink, warm \T\ dry. Musculoskeletal: Range of motion: intact in all extremities. 20:05 Reassessment: Patient appears in no apparent distress at this time. Patient and/or hb family updated on plan of care and expected duration. Pain level reassessed. Patient is alert, oriented x 3, equal unlabored respirations, skin warm/dry/pink. Vital Signs: 15:42 BP 165 / 99; Pulse 110; Resp 18; Pulse Ox 97% on R/A; Weight 79.38 kg; Height 5 ft. 10 ap3 in. ; Pain 7/10; 18:24 BP 160 / 71; Pulse 89; Resp 17; Pulse Ox 99% on R/A; rs5 20:06 BP 170 / 108; Pulse 70; Resp 16; Pulse Ox 98% on R/A; Pain 2/10; hb 15:42 Body Mass Index 25.11 (79.38 kg, 177.8 cm) ap3 15:42 Pain Scale: Adult ap3 20:06 Pain Scale: Adult hb ED Course: 15:32 Patient arrived in ED. mg5 15:39 Bhupinder Santana DO is Attending Physician. ms3 15:40 Moise Pepe, RN is Primary Nurse. rs5 15:44 Triage completed. ap3 15:45 Patient has correct armband on for positive identification. Call light in reach. Side ap3 rails up X 1. Provided Education on: fall risk education. Pulse ox on. NIBP on. 15:45 Arm band placed on right wrist. ap3 15:45 No provider procedures requiring assistance completed. rs5 20:29 James Sylvester MD is Referral Physician. ms3 21:03 XRAY Chest (1 view) In Process Unspecified. EDMS Administered Medications: 18:35 Drug: morphine IVP or IV 4 mg IVP once over 4 mins Route: IVP; Infused Over: 4 mins; rs5 Site: left antecubital; Medication: 18:24 VIS not applicable for this client. rs5 Outcome: 20:29 Discharge ordered by . ms3 21:16 Patient left the ED. hb Signatures: Dispatcher [employer] EDMS Otilia Rodgers, RN RN Ekaterina Marquez RN RN ap3 Bhupinder Santana DO DO ms3 Moise Pepe, RN RN rs5 Pam Velasquez mg5
[2023-12-19 23:45] VITALS: BP 170/108; O2SAT 98
--- NOTE | 2023-12-20 12:11 | EKG ---
Test Date: 2023-12-19 Test Time: 15:45:22 Manager Custom: CELIA MEASUREMENT RESULTS: Intervals: Rate: 110 DC: 184 QRSD: 104 QT: 340 QTc: 460 [place]: P: 60 DC: 184 QRS: -1 T: 59 INTERPRETIVE STATEMENTS: Sinus tachycardia Inferior infarct, age undetermined Abnormal ECG Compared to ECG 12/22/2021 16:23:10 Myocardial infarct finding now present Sinus rhythm no longer present Electronically Signed On 12-20-23 12:10:11 CDT by Kam Chu
== END 2023-12-19 21:16 | disposition home or self-care (01) ==
LOC: ER 15:30
DX: R07.89 Other chest pain (principal); I10 Essential (primary) hypertension
CPT/HCPCS: 36415; 71045; 80048; 84484; 85025; 85379; 93005; 96374; 99284

== ENCOUNTER 2024-02-27 14:39 | Emergency (ER) | payer MEDICARE ==
[2024-02-27] MEDS ORDERED: NA CHLORIDE 0.9% 1,000 ML ONE (15:31)
[2024-02-27] MEDS ORDERED: METOCLOPRAMIDE 10 MG/2mL INJ ONE (15:31)
[2024-02-27] MEDS ORDERED: Magnesium Sulfate 2gm IVPB 2 G/50 ML BAG IV ONE (15:31)
[2024-02-27] MEDS ORDERED: DIPHENHYDRAMINE 50 MG/ML VIAL ONE (15:31)
[2024-02-27 15:47] LABS: Absolute Basophils 0.1 K/uL (0-0.5); Absolute Eosinophils 0.1 K/uL (0-0.5); Absolute Lymphocytes (CBC) 1.8 K/uL (0.7-4.9); Absolute Monocytes 0.4 K/uL (0.1-1.3); Absolute Neutrophil 3.1 K/uL (1.8-8.0); Eosinophils % 2.3 % (0-4.4); Hematocrit 42.7 % (39.6-49.0); Hemoglobin 14.5 g/dL (13.6-17.9); Lymphocytes % 33.7 % (15.3-44.8); MCH 32.6 pg (27.0-35.0); MCHC 33.9 g/dL (32.0-36.0); MCV 96.3 fL (80-100); MPV 7.4 fL (7.6-11.3); Monocytes % 6.5 % (3.3-12.3); Neutrophils % 56.5 % (41.7-73.7); Nucleated Red Blood Cells % 0.1 % (0-0); Platelets 163 thou/uL (152-406); RBC Red Blood Cell Count 4.44 M/uL (4.33-5.43); Red Cell Distribution Width 14.4 % (12.1-15.2)
[2024-02-27 15:48] LABS: PT Prothrombin Time 11.7 SECONDS (9.4-12.5); Protime INR 1.05
[2024-02-27 15:55] LABS: Albumin 3.7 g/dL (3.4-5.0); Albumin/Globulin Ratio 0.9 (1.1-1.8); Anion Gap 7.6 mEq/L (5.0-15.0); Bilirubin Direct 0.2 mg/dL (0-0.2); Bilirubin Indirect, Calculated 0.6 mg/dL (0.2-0.8); Bilirubin Total 0.8 mg/dL (0.2-1.0); Globulin 4.1 g/dL (2.3-3.5); Potassium 3.6 mEq/L (3.5-5.1); Protein, Total 7.8 g/dL (6.4-8.2); Troponin High Sensitivity 7.8 pg/mL (<58.9)
--- NOTE | 2024-02-27 16:50 | RAD REPORT ---
EXAM: CT brain without contrast HISTORY: [facility] MAIN HEADACHE Bed Name: 9 COMPARISON: 07/27/2023 TECHNIQUE: Multiple contiguous axial images were obtained and a CT of the brain without contrast. Sag ittal and coronal reformats were performed. FINDINGS: No evidence of hydrocephalus, intracranial hemorrhage, or extra-axial fluid collection. Stable subinsular crescentic encephalomalacia, and stable left hemispheric asymmetric white matter c onfluent hypodensity with volume loss. Findings most likely relate to sequela of remote ischemia. Asymmetric ex vacuo dilation of the left lateral ventricle, with stable caliber. The calvarium is intact. The visualized paranasal sinuses and mastoid air cells are essentially clear . IMPRESSION: No evidence of acute intracranial abnormality. Stable chronic findings as above.
--- NOTE | 2024-02-27 17:08 | RAD REPORT ---
EXAMINATION: ONE VIEW CHEST XR CLINICAL INDICATION: Male, 68 years old. [facility] MAIN DYSPNEA Bed Name: 9 TECHNIQUE: Frontal chest projection is submitted. Examination is limited by patient positioning and t echnique. COMPARISON: 12/19/2023 FINDINGS: The lungs are well inflated and clear. No pneumothorax or sizable effusion. The heart is normal in s ize. IMPRESSION: No acute intrathoracic abnormalities.
--- NOTE | 2024-02-27 17:47 | ER ---
Nurse's Notes [facility] Name: George Molina Age: 68 yrs Sex: Male : 1955 Arrival Date: 02/27/2024 Time: 14:39 Bed 9 Private MD: Diagnosis: Headache Presentation: 02/26 14:53 Chief complaint: Patient's son or daughter states: had a headache last night, he took iw some aspirin this morning and the headache came back 45 minutes ago , also has SOB and general weakness today , no fever or chills , no cough. Coronavirus screen: Client presents with at least one sign or symptom that may indicate coronavirus-19. Ebola Screen: No symptoms or risks identified at this time. Initial Sepsis Screen: Does the patient meet any 2 criteria? No. Patient's initial sepsis screen is negative. Does the patient have a suspected source of infection? No. Patient's initial sepsis screen is negative. Risk Assessment: Do you want to hurt yourself or someone else? Patient reports no desire to harm self or others. Onset of symptoms was February 26, 2024. 14:53 Method Of Arrival: Wheelchair iw 14:53 Acuity: FRANCY 3 iw Triage Assessment: 17:20 Headache History: The patient has had previous headaches and this one is less severe me1 than previous episodes. 17:20 Pain: Also complains of no other associated symptoms. me1 Historical: - Allergies: 14:55 Ibuprofen; iw - PMHx: 14:55 Cerebrovascular accident; Hypertensive disorder; Kidney disease; iw - PSHx: 14:55 None; iw - Immunization history:: Adult Immunizations not up to date. - Infectious Disease History:: Denies. - Social history:: Smoking status: Patient denies any tobacco usage or history of. - Family history:: not pertinent. Screenin:41 [facility] ED Fall Risk Assessment (Adult) History of falling in the last 3 months, me1 including since admission No falls in past 3 months (0 pts) Confusion or Disorientation No (0 pts) Intoxicated or Sedated No (0 pts) Impaired Gait Yes (1 pt) Mobility Assist Device Used Yes (1 pt) Altered Elimination No (0 pt) Score/Fall Risk Level 0 - 2 = Low Risk Maintained a safe environment, Provided non-skid footwear, Hourly rounding (assess needs \T\ fall precautionary measures) done. Abuse screen: Denies threats or abuse. Nutritional screening: No deficits noted. Tuberculosis screening: No symptoms or risk factors identified. Assessment: 15:41 General: Appears comfortable, well groomed, well developed, well nourished, Behavior is me1 calm, cooperative, appropriate for age, Reports had a headache last night, he took some aspirin this morning and the headache came back 45 minutes ago , also has SOB and general weakness today , no fever or chills , no cough. Pain: Complains of pain in head Pain does not radiate. Pain currently is 9 out of 10 on a pain scale. Quality of pain is described as aching, Pain began gradually, Is continuous. Neuro: Level of Consciousness is awake, alert, obeys commands, Oriented to person, place, time, situation, Appropriate for age. Neuro: Reports headache since this morning. Cardiovascular: Patient's skin is warm and dry. Respiratory: Airway is patent Respiratory effort is even, unlabored, Respiratory pattern is regular, symmetrical. Respiratory: Reports shortness of breath at rest on exertion. GI: No signs and/or symptoms were reported involving the gastrointestinal system. : No signs and/or symptoms were reported regarding the genitourinary system. EENT: No signs and/or symptoms were reported regarding the EENT system. Derm: Skin is intact, is healthy with good turgor, Skin is pink, warm \T\ dry. Musculoskeletal: No signs and/or symptoms reported regarding the musculoskeletal system. 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 Vital Signs: 14:53 BP 174 / 106; Pulse 103; Resp 18; Temp 98; Pulse Ox 98% ; Weight 77.11 kg; Height 5 ft. iw 10 in. ; Pain 8/10; 15:45 BP 166 / 92; Pulse 101; Resp 18; Pulse Ox 100% on R/A; me1 16:00 BP 167 / 99; Pulse 92; Resp 16; Pulse Ox 98% ; me1 17:00 BP 158 / 96; Pulse 94; Resp 16; Pulse Ox 98% ; me1 18:02 BP 168 / 97; Pulse 97; Resp 17; Temp 98.3; Pulse Ox 99% ; me1 14:53 Body Mass Index 24.39 (77.11 kg, 177.8 cm) iw 14:53 Pain Scale: Adult iw ED Course: 14:42 Patient arrived in ED. mg5 14:55 Triage completed. iw 14:56 Arm band placed on. iw 15:04 Miguel A Kan MD is Attending Physician. rt 15:07 Itzel Munguia, RN is Primary Nurse. me1 15:29 Basic Metabolic Panel Sent. me1 15:29 CBC with Diff Sent. me1 15:29 LFT's Sent. me1 15:29 Magnesium Sent. me1 15:29 PT-INR Sent. me1 15:29 Troponin HS Sent. me1 15:29 Inserted saline lock: 22 gauge in left forearm, using aseptic technique. Blood me1 collected. Flushed with 10 mL NS. 15:41 Patient has correct armband on for positive identification. Bed in low position. Call me1 light in reach. Side rails up X2. Provided Education on: POC. Verbalized understanding. . Client placed on continuous cardiac and pulse oximetry monitoring. NIBP monitoring applied. radio communications superintendent on. Pulse ox on. NIBP on. 15:41 No provider procedures requiring assistance completed. me1 16:17 CT Head Brain wo Cont In Process Unspecified. EDMS 16:40 XRAY Chest (1 view) In Process Unspecified. EDMS 18:02 IV discontinued, intact, bleeding controlled, No redness/swelling at site. Pressure me1 dressing applied. Administered Medications: 15:40 Drug: NS 0.9% IV 1000 ml IV at 1 bolus Per protocol; 1000 mL bolus Route: IV; Rate: 1 me1 bolus; Site: left forearm; 17:55 Follow up: Response: No adverse reaction; IV Status: Completed infusion; IV Intake: me1 1000ml 15:41 Drug: metoCLOPramide IVP 10 mg IVP once; over 1 to 2 minutes Route: IVP; Site: left me1 forearm; 16:10 Follow up: Response: No adverse reaction; Pain is decreased; Nausea is decreased me1 15:41 Drug: diphenhydrAMINE IVP 25 mg IVP once Route: IVP; Site: left forearm; me1 16:10 Follow up: Response: No adverse reaction; Pain is decreased me1 15:41 Drug: Magnesium Sulfate IVPB 2 grams IVPB once over 1 hrs Route: IVPB; Infused Over: 1 me1 hrs; Site: left forearm; 17:18 Follow up: Response: No adverse reaction; IV Status: Completed infusion; IV Intake: me1 100ml Medication: 15:41 VIS not applicable for this client. me1 Intake: 17:18 IV: 100ml; Total: 100ml. me1 17:55 IV: 1000ml; Total: 1100ml. me1 Outcome: 17:47 Discharge ordered by . rt 18:03 Discharged to home via wheelchair, with family, me1 18:03 Condition: stable 18:03 Discharge instructions given to patient, family, Instructed on discharge instructions, follow up and referral plans. Demonstrated understanding of instructions, follow-up care, 18:03 Patient left the ED. me1 Signatures: Dispatcher [employer] Lianet Lee RN RN iw Miguel A Kan MD MD rt Itzle Munguia RN RN me1 Pam Velasquez mg5 Corrections: (The following items were deleted from the chart) 15:41 14:53 Chief complaint: Patient's son or daughter states: had a headache last night, he me1 took some aspirin this morning and the headache came back 45 minutes ago , also has SOB and general weakness today , no fever or chills , no cough iw
--- NOTE | 2024-02-27 17:47 | EDPHYS ---
Physician Documentation [facility] Name: George Molina Age: 68 yrs Sex: Male : 1955 Arrival Date: 02/27/2024 Time: 14:39 Bed 9 Private MD: ED Physician Miguel A Kan HPI: 02/26 15:14 This 68 yrs old Male presents to ER via Wheelchair with complaints of Headache, rt Shortness Of Breath, Weakness. 15:14 Patient with previous CVA, hemorrhagic conversion and residual right-sided episodes rt presents to the ED with headache starting last night. Patient went to bed, woke up, the pain was not any better, took aspirin with no relief. Reports of shortness of breath and generalized weakness but denies other acute complaints at this time, symptoms are moderate in severity, no other aggravating or alleviating factors.. Historical: - Allergies: 14:55 Ibuprofen; iw - PMHx: 14:55 Cerebrovascular accident; Hypertensive disorder; Kidney disease; iw - PSHx: 14:55 None; iw - Immunization history:: Adult Immunizations not up to date. - Infectious Disease History:: Denies. - Social history:: Smoking status: Patient denies any tobacco usage or history of. - Family history:: not pertinent. ROS: 15:14 Constitutional: Negative for fever, chills, and weight loss, Cardiovascular: Negative rt for chest pain, palpitations, and edema, Abdomen/GI: Negative for abdominal pain, nausea, vomiting, diarrhea, and constipation, MS/Extremity: Negative for injury and deformity, Skin: Negative for injury, rash, and discoloration, Neuro: Negative for headache, weakness, numbness, tingling, and seizure, 15:14 Respiratory: Positive for shortness of breath, Negative for cough, 15:14 Neuro: Positive for headache, weakness, Exam: 15:14 Constitutional: This is a well developed, well nourished patient who is awake, alert, rt and in no acute distress. Head/Face: Normocephalic, atraumatic. Chest/axilla: Normal chest wall appearance and motion. Nontender with no deformity. No lesions are appreciated. Cardiovascular: Regular rate and rhythm with a normal S1 and S2. No gallops, murmurs, or rubs. Normal PMI, no JVD. No pulse deficits. Respiratory: Lungs have equal breath sounds bilaterally, clear to auscultation and percussion. No rales, rhonchi or wheezes noted. No increased work of breathing, no retractions or nasal flaring. Abdomen/GI: Soft, non-tender, with normal bowel sounds. No distension or tympany. No guarding or rebound. No evidence of tenderness throughout. 15:14 Neuro: Mumbled speech, right-sided hemiplegia noted, pre-existing per son and unchanged. Strength and sensation otherwise intact., 15:54 ECG was reviewed by the Attending Physician. rt Vital Signs: 14:53 BP 174 / 106; Pulse 103; Resp 18; Temp 98; Pulse Ox 98% ; Weight 77.11 kg; Height 5 ft. iw 10 in. ; Pain 8/10; 15:45 BP 166 / 92; Pulse 101; Resp 18; Pulse Ox 100% on R/A; me1 16:00 BP 167 / 99; Pulse 92; Resp 16; Pulse Ox 98% ; me1 17:00 BP 158 / 96; Pulse 94; Resp 16; Pulse Ox 98% ; me1 18:02 BP 168 / 97; Pulse 97; Resp 17; Temp 98.3; Pulse Ox 99% ; me1 14:53 Body Mass Index 24.39 (77.11 kg, 177.8 cm) iw 14:53 Pain Scale: Adult iw MDM: 15:05 Patient medically screened. rt 18:33 Differential diagnosis: Headache, intracranial hemorrhage. Data reviewed: vital signs, rt nurses notes, lab test result(s), EKG, radiologic studies. I considered the following discharge prescriptions or medication management in the emergency department Medications were administered in the Emergency Department. See MAR. Independent interpretation of the following test(s) in the Emergency Department CT Scan: My interpretation is No intracranial hemorrhage seen on interpretation of CT scan images. Care significantly affected by the following chronic conditions: Hypertension. Counseling: I had a detailed discussion with the patient and/or guardian regarding the historical points, exam findings, and any diagnostic results supporting the discharge/admit diagnosis, lab results, radiology results, the need for outpatient follow up, to return to the emergency department if symptoms worsen or persist or if there are any questions or concerns that arise at home. Response to treatment: the patient's symptoms have resolved after treatment, the patient's pain is gone. 02/26 15:10 Order name: Basic Metabolic Panel; Complete Time: 15:57 rt 02/26 15:10 Order name: CBC with Diff; Complete Time: 15:57 rt 02/26 15:10 Order name: LFT's; Complete Time: 15:57 rt 02/26 15:10 Order name: Magnesium; Complete Time: 15:57 rt 02/26 15:10 Order name: PT-INR; Complete Time: 15:57 rt 02/26 15:10 Order name: Troponin HS; Complete Time: 15:57 rt 02/26 15:10 Order name: XRAY Chest (1 view); Complete Time: 17:12 rt 02/26 15:10 Order name: CT Head Brain wo Cont; Complete Time: 17:03 rt 02/26 15:10 Order name: EKG; Complete Time: 15:11 rt 02/26 15:10 Order name: Cardiac monitoring; Complete Time: 15:41 rt 02/26 15:10 Order name: EKG - Nurse/Tech; Complete Time: 15:45 rt 02/26 15:10 Order name: IV Saline Lock; Complete Time: 15:28 rt 02/26 15:10 Order name: Labs collected and sent; Complete Time: 15:28 rt 02/26 15:10 Order name: O2 Per Protocol; Complete Time: 15:28 rt 02/26 15:10 Order name: O2 Sat Monitoring; Complete Time: 15:28 rt EC:54 Rate is 92 beats/min. Rhythm is regular, 1st Degree Block with No ectopy. QRS [place] is rt Normal. NM interval is prolonged at 214 msec. QRS interval is normal. QT interval is normal. No Q waves. No ST changes noted. Interpreted by me. Administered Medications: 15:40 Drug: NS 0.9% IV 1000 ml IV at 1 bolus Per protocol; 1000 mL bolus Route: IV; Rate: 1 me1 bolus; Site: left forearm; 17:55 Follow up: Response: No adverse reaction; IV Status: Completed infusion; IV Intake: me1 1000ml 15:41 Drug: metoCLOPramide IVP 10 mg IVP once; over 1 to 2 minutes Route: IVP; Site: left me1 forearm; 16:10 Follow up: Response: No adverse reaction; Pain is decreased; Nausea is decreased me1 15:41 Drug: diphenhydrAMINE IVP 25 mg IVP once Route: IVP; Site: left forearm; me1 16:10 Follow up: Response: No adverse reaction; Pain is decreased me1 15:41 Drug: Magnesium Sulfate IVPB 2 grams IVPB once over 1 hrs Route: IVPB; Infused Over: 1 me1 hrs; Site: left forearm; 17:18 Follow up: Response: No adverse reaction; IV Status: Completed infusion; IV Intake: me1 100ml Disposition Summary: 02/27/24 17:47 Discharge Ordered Notes: Location: Home rt Problem: new rt Symptoms: have improved rt Condition: Stable rt Diagnosis - Headache rt Followup: rt - With: Private Physician - When: 2 - 3 days - Reason: Discharge Instructions: - Discharge Summary Sheet rt - General Headache Without Cause rt Forms: - Medication Reconciliation Form rt - Antibiotic Education rt - Prescription Opioid Use rt - Patient Portal Instructions rt - Leadership Thank You Letter rt Signatures: Dispatcher [employer] Lianet Lee RN RN iw Miguel A Kan MD MD rt Itzle Munguia RN RN me1 Corrections: (The following items were deleted from the chart) 15:11 15:11 BASIC METABOLIC PANEL+C.LAB.BRZ ordered. EDMS EDMS 15:11 15:11 CBC+H.LAB.BRZ ordered. EDMS EDMS 15:11 15:11 HEPATIC FUNCTION+C.LAB.BRZ ordered. EDMS EDMS 15:11 15:11 MAGNESIUM+C.LAB.BRZ ordered. EDMS EDMS 15:11 15:11 PROTIME (+INR)+COAG.LAB.BRZ ordered. EDMS EDMS 15:11 15:11 Troponin High Sensitivity+C.LAB.BRZ ordered. EDMS EDMS
[2024-02-27 18:31] VITALS: BP 168/97; TEMP 98.3; O2SAT 99
--- NOTE | 2024-02-29 12:25 | EKG ---
Test Date: 2024-02-27 Test Time: 15:42:02 Line Clearance Foreman: NATAN MEASUREMENT RESULTS: Intervals: Rate: 92 NC: 214 QRSD: 100 QT: 382 QTc: 472 [place]: P: 69 NC: 214 QRS: 0 T: 43 INTERPRETIVE STATEMENTS: Sinus rhythm with 1st degree AV block Inferior infarct, age undetermined Abnormal ECG Compared to ECG 12/19/2023 15:45:22 First degree AV block now present Sinus tachycardia no longer present Myocardial infarct finding still present Electronically Signed On 02-29-24 12:18:39 CDT by Kam Chu
== END 2024-02-27 18:03 | disposition home or self-care (01) ==
LOC: ER 14:39
DX: R51.9 Headache, unspecified (principal); R06.02 Shortness of breath; R53.1 Weakness; I10 Essential (primary) hypertension; Z86.73 Personal history of transient ischemic attack (TIA), and cerebral infarction without residual deficits
CPT/HCPCS: 85025; 80048; 36415; 83735; 85610; 80076; 84484; 70450; 71045; J3475; J2765; J1200; J7030; 93005; 96361; 96365; 96366; 96375; 99285